=== PATIENT | male | born 1950 | race Caucasian/White ===

== ENCOUNTER 2018-07-28 20:27 | Inpatient (IN) | payer MEDICARE, OTHER ==
[2018-07-28 21:16] LABS: #Basophils 0.1 thou/uL (0.0-0.2); #Eosinphils 0.1 thou/uL (0.0-0.7); #Lymphocytes 2.2 thou/uL (1.20-3.40); #Monocytes 0.8 thou/uL (0.11-0.59); #Neutrophils 6.6 thou/uL (1.40-6.50); %Basophils 0.6 % (0.0-1.0); %Eosinophils 1.4 % (0.0-10.0); %Lymphocytes 22.1 % (21.0-51.0); %Monocytes 8.4 % (0.0-10.0); %Neutrophils 67.5 % (42.0-75.0); Hemoglobin 15.9 g/dL (14.0-18.0); Mean Corpuscular Hemoglobin 29.5 pg (27.0-31.0); Mean Corpuscular Volume 86.9 fL (78.0-98.0); Mean Platelet Volume 8.6 fL (7.4-10.4); Platelet Count 274 thou/uL (130-400); RBC Distribution Width 13.1 % (11.5-14.5); Red Blood Cell (RBC) Count 5.37 mill/uL (4.70-6.10); White Blood Cell (WBC) Count 9.7 thou/uL (4.8-10.8)
--- NOTE | 2018-07-28 21:19 | RAD ---
SINGLE VIEW CHEST: HISTORY: Shortness of breath for two days. COMPARISON: 08/06/2007 FINDINGS: A single view of the chest shows an enlarged but stable cardiomediastinal silhouette. Opacities are seen in the lung bases, which may represent atelectasis or infiltrates. Small pleural effusions may also be present. Degenerative changes are seen in the spine. IMPRESSION: 1. Bilateral lower lobe atelectasis versus infiltrates. 2. Possible small bilateral pleural effusions. POS: ROSEANNEH
[2018-07-28 21:23] LABS: INR-International Normal Ratio 1.9; PTT 32.8 SEC (22.9-36.1); Prothrombin Time 21.9 SEC (12.0-14.7)
[2018-07-28 21:38] LABS: ALT (SGPT) 14 U/L (8-55); AST (SGOT) 15 U/L (5-34); Albumin 4.2 g/dL (3.4-4.8); Alkaline Phosphatase 97 U/L (40-150); Anion Gap 16 mmol/L (10-20); BUN (Urea Nitrogen) 17 mg/dL (8.4-25.7); Bilirubin, Total 1.2 mg/dL (0.2-1.2); CK (CPK) 110 U/L (30-200); Calc. Creatinine Clearance 0 mL/min (70-130); Calcium 9.5 mg/dL (7.8-10.44); Carbon Dioxide 23 mmol/L (23-31); Chloride 105 mmol/L (98-107); Estimated GFR-MDRD 44; Globulin 3.2 g/dL (2.4-3.5); Glucose 93 mg/dL (80-115); Potassium 3.3 mmol/L (3.5-5.1); Protein, Total 7.4 g/dL (5.8-8.1); Sodium 141 mmol/L (136-145)
[2018-07-28 21:46] LABS: CKMB 2.1 ng/mL (0-6.6)
[2018-07-28] MEDS ORDERED: Furosemide 40 MG/4 ML VIAL ONE (22:37)
[2018-07-28] MEDS ORDERED: Enoxaparin Sodium 100 MG/ML SYRINGE ONE (22:39)
[2018-07-28] MEDS ORDERED: Enoxaparin Sodium 30 MG/0.3 ML SYRINGE ONE ×2 (22:39→22:40)
[2018-07-28] MEDS ORDERED: Senokot S 8.6-50 MG TAB PO PRN (23:07)
[2018-07-28] MEDS ORDERED: Zolpidem Tartrate 5 MG TAB PO PRN (23:07)
[2018-07-28] MEDS ORDERED: Acetaminophen 325 MG TAB PO PRN (23:07)
[2018-07-28] MEDS ORDERED: Acetaminophen 650 MG Suppository PR PRN (23:07)
[2018-07-28] MEDS ORDERED: Bisacodyl 5 MG TAB PO PRN (23:07)
[2018-07-28] MEDS ORDERED: Ondansetron ODT 4 MG TAB PO PRN (23:07)
[2018-07-28] MEDS ORDERED: Ondansetron PF 4 MG/2 ML Vial IVP PRN (23:07)
[2018-07-28] MEDS ORDERED: Guaifenesin DM 100-10/5 ML UDCUP PO PRN (23:07)
[2018-07-29 01:11] LABS: Troponin I 0.036 ng/mL (< 0.028)
[2018-07-29] MEDS ORDERED: Calcitriol 0.25 MCG CAP PO SCH (05:15)
[2018-07-29 05:16] LABS: Albumin 3.3 g/dL (3.4-4.8); Anion Gap 14 mmol/L (10-20); BUN (Urea Nitrogen) 16 mg/dL (8.4-25.7); BUN/Creatinine Ratio 11.43; Calc. Creatinine Clearance 80 mL/min (70-130); Calcium 8.8 mg/dL (7.8-10.44); Carbon Dioxide 19 mmol/L (23-31); Chloride 111 mmol/L (98-107); Estimated GFR-MDRD 50; Glucose 108 mg/dL (80-115); Potassium 3.4 mmol/L (3.5-5.1); Sodium 141 mmol/L (136-145)
--- NOTE | 2018-07-29 06:14 | HP ---
CHIEF COMPLAINT: Shortness of breath. HISTORY OF PRESENT ILLNESS: This is a 68-year-old male who has past medical history of CHF, hypertension, and atrial fibrillation, presenting with shortness of breath for the past 2 days. Per the patient, he states that he has been having severe shortness of breath with lying flat, walking distances compared to his baseline. The patient also states that he has to sit straight for relief. The patient is also complaining of bilateral lower extremity swelling. Per the , the patient is also complaining of some abdominal bloating. The patient states that when he eats a little bit of food, he gets a lot of gas in his abdomen and he feels like he wants to burp or try and release some gas, but sometimes, it is very difficult for him. The patient states that he recently went to the ED due to this abdominal bloating and he was given Maalox and that helped. At this point, the patient states that he takes Lasix, which also helps with his shortness of breath. The patient endorses orthopnea, dyspnea on exertion, paroxysmal nocturnal dyspnea. Denies any chest pain, palpitations, fever, chills, dizziness, headaches, dysuria, hematuria, melena, hematochezia, constipation, or diarrhea. REVIEW OF SYSTEMS: Positive for dyspnea, orthopnea, paroxysmal nocturnal dyspnea, otherwise as documented in the HPI. All other systems were reviewed and are negative. PAST MEDICAL HISTORY: CHF, AFib, hypertension. FAMILY HISTORY: Reviewed and noncontributory to this visit. PAST SURGICAL HISTORY: Left knee surgery. PSYCH HISTORY: No psych history. SOCIAL HISTORY: The patient is a former tobacco user. The patient stopped smoking in 2014. The patient denies any illicit drugs. The patient denies any alcohol use. ALLERGIES: NO KNOWN DRUG ALLERGIES. CURRENT MEDICATIONS: The patient takes: 1. Lasix 40. 2. Warfarin 5 mg. 3. Diltiazem 240 mg. 4. Digoxin 125 mcg. 5. Potassium chloride 10 mEq. 6. Atorvastatin 40 mg. PHYSICAL EXAMINATION: VITAL SIGNS: The patient's blood pressure is 129/92, pulse of 89, respiratory rate of 18, temperature of 98.1, O2 saturation of 97% on room air. GENERAL: The patient is lying on his left side, does not appear to be in any acute distress at this time. The patient is able to speak to me in full sentences. The patient appears his stated age. HEENT: Normocephalic, atraumatic. Pupils are equally round and reactive to light. Extraocular movements are intact. No scleral icterus. Mucous membranes moist. NECK: The patient does have some JVD as noted. Trachea is midline. Full range of motion. Supple. LUNGS: The patient has some rales bilaterally at the lung bases. CARDIAC: Positive S1 and S2. Irregularly irregular. ABDOMEN: Obese abdomen. Soft, nontender, and nondistended. Positive bowel sounds in all quadrants. No peritoneal signs. EXTREMITIES: The patient has 5/5 upper extremity strength and 5/5 lower extremity strength. The patient does have bilateral 1+ pitting edema as noted at the lower extremities. The patient has good pulses of the lower extremities and upper extremities. NEURO: Cranial nerves 2 through 12 are grossly intact. No neurologic deficits noted. SKIN: Warm, dry, and intact. No skin lesions noted. LABORATORY DATA: WBC 9.7, hemoglobin 15.9, hematocrit 46.6, platelet count is 274. PT is 21.9, INR is 1.9, PTT 32.8. Sodium is 141, potassium is 3.3, chloride is 105, carbon dioxide of 23, anion gap of 16, BUN is 17, creatinine is 1.57, GFR is 44, AST is 15, ALT is 14. Creatine kinase is 110. Troponin is 0.04, repeat is 0.03. BNP is 244. Chest x-ray shows some bilateral infiltrates and small pleural effusion noted. ASSESSMENT AND PLAN: This is a 68-year-old male with multiple comorbidities being admitted for: 1. Shortness of breath, likely secondary to acute congestive heart failure exacerbation. At this point, the patient has been given Lasix. We will hold off Lasix at this time since the patient's creatinine is currently 1.57. We will get Nephrology to help with the patient's acute kidney injury in addition to having acute heart failure. We have also consulted Pulmonology on the case. We will follow up with their recommendations. 2. Acute kidney injury, likely due to Lasix use. At this point, the patient's creatinine is 1.57 and the patient has chronic kidney disease stage 3. We have consulted Nephrology to help us with the management of the patient's acute heart failure in the setting of acute kidney injury. We will continue with their recommendations and will follow up on renal panel. 3. Atrial fibrillation: The patient is on warfarin. We will continue the patient on warfarin, and I will continue the patient on digoxin and diltiazem, which the patient takes at home. I will continue to monitor the patient. 4. Hypertension, uncontrolled at this time. We will continue the patient on his home medications and we will monitor the patient's blood pressure closely, and we will address the patient's hypertension accordingly without p.r.n. blood pressure medications. 5. Hypokalemia: We will replete the patient's electrolyte abnormalities. 6. Bilateral pleural effusions: The patient has received Lasix. We will continue to manage the patient accordingly. 7. Deep venous thrombosis and gastrointestinal prophylaxis. Job ID: [id number]
[2018-07-29 07:36] LABS: #Basophils 0.1 thou/uL (0.0-0.2); #Eosinphils 0.2 thou/uL (0.0-0.7); #Lymphocytes 2.1 thou/uL (1.20-3.40); #Monocytes 0.9 thou/uL (0.11-0.59); #Neutrophils 5.1 thou/uL (1.40-6.50); %Basophils 1.1 % (0.0-1.0); %Eosinophils 2.1 % (0.0-10.0); %Monocytes 10.8 % (0.0-10.0); Hemoglobin 14.5 g/dL (14.0-18.0); Mean Corpuscular HGB CONC 33.4 g/dL (32.0-36.0); Mean Corpuscular Hemoglobin 29.2 pg (27.0-31.0); Mean Corpuscular Volume 87.6 fL (78.0-98.0); Mean Platelet Volume 8.7 fL (7.4-10.4); Platelet Count 210 thou/uL (130-400); Red Blood Cell (RBC) Count 4.96 mill/uL (4.70-6.10); White Blood Cell (WBC) Count 8.4 thou/uL (4.8-10.8)
[2018-07-29] MEDS: Potassium Chloride 10 MEQ TAB PO SCH (08:59)
[2018-07-29] MEDS: Calcitriol 0.25 MCG CAP PO SCH (08:59)
[2018-07-29] MEDS: Digoxin 0.125 MG TAB PO SCH (08:59)
[2018-07-29] MEDS: Atorvastatin Calcium 40 MG TAB PO SCH (08:59)
[2018-07-29] MEDS ORDERED: Heparin 5,000 UNITS/ML VIAL SC SCH (09:00)
[2018-07-29] MEDS ORDERED: Furosemide 40 MG/4 ML VIAL SLOW IVP SCH ×2 (10:10→10:30)
[2018-07-29] MEDS ORDERED: Potassium Chloride 20 MEQ TAB PO SCH (10:15)
[2018-07-29] MEDS: Mag-Al Plus 1200 MG/1200 MG/120 MG/30 ML UDCUP PO SCH ×2 (10:40→21:23)
[2018-07-29 11:08] LABS: Digoxin 0.64 ng/mL (0.8-2.0)
--- NOTE | 2018-07-29 13:43 | CON ---
DATE OF CONSULTATION: 07/29/2018 TYPE OF CONSULTATION: Cardiology. REASON FOR CONSULTATION: Atrial fibrillation and congestive heart failure. HISTORY OF PRESENT ILLNESS: Mr. Tom You is a 68-year-old gentleman, admitted with congestive heart failure. Mr. You states he first began having problems 3 years ago, he was diagnosed with atrial fibrillation at that time. He states that about 2 years ago, he underwent cardioversion, but went back into fibrillation relatively quickly. The patient has had some difficulty breathing off and on since then. To his knowledge, he has never had a heart catheterization. To his knowledge, he has never had stress testing. He was scheduled to see Dr. Ambriz, but has not yet done so. He is cared for primarily by regional operations director in [place]. He saw his regional operations director a month ago in [place] and things were fine according to the patient at that point. The patient has had progressive shortness of breath. He went to the emergency room a few days ago. He was seen and released, but his difficulty breathing progressed in the last few days. He became increasingly short of breath and was admitted here yesterday. He is unable to lie flat. He has had increasing swelling of his lower extremities. He has a feeling of bloating in his stomach and it is difficult to eat because he feels very full with minimal eating. REVIEW OF SYSTEMS: CONSTITUTIONAL: Positive for some difficulty breathing. VISION: No changes. HEARING: No changes. PULMONARY: Positive for shortness of breath and orthopnea and nocturnal dyspnea. CARDIAC: As outlined above as well. GASTROINTESTINAL: As outlined above. SKIN: No rashes. NEUROLOGIC: No unilateral weakness or numbness. PSYCHIATRIC: No unusual depression or anxiety. HEMATOLOGIC: No unusual bruising. GENITOURINARY: No burning with urination. MUSCULOSKELETAL: No unusual joint pains. PAST MEDICAL HISTORY: 1. Congestive heart failure. 2. Atrial fibrillation. 3. Hypertension. FAMILY HISTORY: Noncontributory. Negative for heart disease at a young age. SOCIAL HISTORY: No alcohol or tobacco. He quit in 2014. Psychiatric, no psychiatric history. ALLERGIES: NONE KNOWN. MEDICATIONS: Prior to admission; 1. Lasix 40 mg. 2. Coumadin 5 mg a day. 3. Diltiazem 240 mg a day. 4. Digoxin 0.125 mg a day. 5. Potassium 10 mEq a day. 6. Atorvastatin 40 mg a day. PAST SURGICAL HISTORY: Negative for any cardiac surgeries or procedures. PHYSICAL EXAMINATION: GENERAL: This is a pleasant 68-year-old gentleman. VITAL SIGNS: His blood pressure earlier 174/78. Pulse recorded at 98, now it is 130. Most recent blood pressure 123/87. HEENT: Eyes, sclerae nonicteric. Mouth, mucous membranes moist. NECK: Supple. No lymphadenopathy. LUNGS: Clear. No wheezing, rales, or rhonchi. CARDIAC: Irregularly irregular. He is tachycardic. There is a 3/6 holosystolic murmur, sounds like mitral regurgitation, heard loudest at the apex. ABDOMEN: Somewhat distended. Nontender. EXTREMITIES: No clubbing, cyanosis. There is [id number] edema. Pulses, he has good popliteal pulses. It is difficult to feel pedal pulses due to the edema. PERTINENT LABORATORY: The creatinine is 1.4 and estimated GFR is 50. Troponins are indeterminant 0.040 and BNP 244.5. Chest x-ray shows cardiomegaly with pulmonary congestion to my interpretation. ASSESSMENT: 1. Congestive heart failure, probably systolic and diastolic mixed, acute on chronic decompensated, unable to lie flat. 2. Suspect mitral regurgitation. 3. Atrial fibrillation, chronic, rate uncontrolled. 4. Renal failure, stage 3. PLAN: 1. He is on diltiazem. 2. He is on digoxin. We will check a level. 3. Intravenous diuretics. 4. Echocardiogram pending. 5. Hypokalemia. We will replete potassium. 6. The patient in my opinion should be admitted and he will be here a few days, it is ultimately stress testing versus cardiac catheterization. At this point, the patient is not yet compensated to undergo stress testing, but should be considered. 7. Also, he is still on Coumadin for the atrial fibrillation and stroke prevention. We will follow with you during this hospitalization. Job ID: [id number]
[2018-07-29] MEDS: Furosemide 40 MG/4 ML VIAL SLOW IVP SCH (15:38)
[2018-07-29 17:00] VITALS: BMI 31.2
[2018-07-29] MEDS: Warfarin Sodium 5 MG TAB PO SCH (18:07)
[2018-07-29] MEDS ORDERED: Warfarin Sodium 5 MG TAB PO SCH (21:00)
[2018-07-30 05:37] LABS: INR-International Normal Ratio 1.5; Prothrombin Time 17.9 SEC (12.0-14.7)
[2018-07-30 06:06] LABS: Anion Gap 17 mmol/L (10-20); BUN (Urea Nitrogen) 17 mg/dL (8.4-25.7); Calc. Creatinine Clearance 81 mL/min (70-130); Calcium 9.1 mg/dL (7.8-10.44); Carbon Dioxide 21 mmol/L (23-31); Chloride 108 mmol/L (98-107); Estimated GFR-MDRD 51; Glucose 97 mg/dL (80-115); Magnesium 2.6 mg/dL (1.6-2.6); Phosphorus 3.3 mg/dL (2.3-4.7); Potassium 3.5 mmol/L (3.5-5.1); Sodium 142 mmol/L (136-145)
[2018-07-30] MEDS: Furosemide 40 MG/4 ML VIAL SLOW IVP SCH ×2 (06:54→14:27)
[2018-07-30] MEDS: Digoxin 0.125 MG TAB PO SCH (09:32)
[2018-07-30] MEDS: Atorvastatin Calcium 40 MG TAB PO SCH (09:32)
[2018-07-30] MEDS: Potassium Chloride 10 MEQ TAB PO SCH (09:32)
[2018-07-30] MEDS: Mag-Al Plus 1200 MG/1200 MG/120 MG/30 ML UDCUP PO SCH ×2 (09:33→21:03)
[2018-07-30] MEDS: Warfarin Sodium 5 MG TAB PO SCH (16:32)
--- NOTE | 2018-07-30 16:45 | PDOC.PN ---
- Subjective Encounter Start Date: 07/30/18 Encounter Start Time: 16:43 Subjective: Improved relative to admission, not yet to baseline "but getting there" -: Prefers to do stress test as outpatient if possible with Dr. Shaikh's offic - Objective Resuscitation Status - Order Detail: 07/28/18 23:07 Resuscitation Status Routine Resuscitation Status: FULL: Full Resuscitation Vital Signs & Weight: Vital Signs (12 hours) Temp Pulse Pulse Pulse Resp BP BP 07/30/18 11:44 97.8 F 62 16 07/30/18 11:28 102 H 111 H 129/93 H 127/78 07/30/18 09:32 76 07/30/18 09:15 07/30/18 07:52 97.7 F 76 18 BP BP Pulse Ox Pulse Ox Pulse Ox 07/30/18 11:44 124/93 H 96 07/30/18 11:28 97 96 07/30/18 09:32 07/30/18 09:15 96 07/30/18 07:52 163/106 H 96 Weight Admit Weight 249 lb 14.4 oz Weight 250 lb 3.2 oz I&O: 07/29/18 07/30/18 07/31/18 06:59 06:59 06:59 Intake Total 0 798 Output Total 400 1425 Balance -400 -627 Result Diagrams: 07/29/18 07:21 07/30/18 04:52 Phys Exam - Physical Examination Constitutional: NAD HEENT: PERRLA, moist MMs Neck: supple, full ROM Respiratory: clear to auscultation bilateral irregularly irregular Gastrointestinal: soft, non-tender Trace edema Neurological: non-focal, moves all 4 limbs Psychiatric: normal affect, A&O x 3 Skin: no rash Dx/Plan (1) Mitral valve regurgitation Status: Chronic (2) Atrial fibrillation, chronic Code(s): I48.2 - CHRONIC ATRIAL FIBRILLATION Status: Chronic (3) Hypertension Code(s): I10 - ESSENTIAL (PRIMARY) HYPERTENSION Status: Chronic Qualifiers: Hypertension type: essential hypertension Qualified Code(s): I10 - Essential (primary) hypertension (4) Dyslipidemia Code(s): E78.5 - HYPERLIPIDEMIA, UNSPECIFIED Status: Chronic - Plan cont current plan of care, out of bed/ambulate * Assessment: * 1. CHF, secondary to valvular heart disease (diastolic) - Echo with moderate to severe MR. LA moderately to severely dilated. EF 55-60%. Patient would prefer outpatient stress test/cath if recommended by Dr. Shaikh. He would like to establish in [facility] cardiology care, has been traveling to [facility] to see Dr. Carranza. * 2. Atrial fibrillation - Continue coumadin, subtherapeutic. Optimize rate control, on CCB and digoxin at home * 3. CKD stage 3-check AM lab. Appears euvolemic presently, lasix on hold * 4. HTN - start low dose lisinopril * 5. Hypokalemia - additional dose tonight * * Home tomorrow a consideration if ok with cardiology * .
[2018-07-30] MEDS ORDERED: Warfarin Sodium 7.5 MG TAB PO SCH (17:00)
[2018-07-30] MEDS ORDERED: Potassium Chloride 20 MEQ TAB PO SCH (17:00)
[2018-07-30] MEDS ORDERED: Warfarin Sodium 2.5 MG TAB PO SCH (17:15)
--- NOTE | 2018-07-30 19:16 | PRG ---
DATE OF SERVICE: 07/30/2018 SUBJECTIVE: The patient is doing well, feeling much better. His breathing has improved. OBJECTIVE: VITAL SIGNS: His blood pressure is 124/93 and pulse is in the 70 to 80, it is irregular. LUNGS: Clear. CARDIAC: Irregularly irregular with aortic murmur. ABDOMEN: Soft and nontender. LABORATORY DATA: Revealed ejection fraction is normal. He has moderate aortic stenosis. INR is 1.5. ASSESSMENT: 1. Aortic stenosis. 2. Mitral regurgitation. 3. Chronic atrial fibrillation. 4. Diastolic heart failure, improved. PLAN: Plan for stress testing tomorrow. The patient wished to be released home as soon as possible. Job ID: [id number]
[2018-07-30] MEDS: Lisinopril 5 MG TAB PO SCH (21:03)
[2018-07-31 06:34] LABS: Hemoglobin 14.7 g/dL (14.0-18.0); Platelet Count 206 thou/uL (130-400)
[2018-07-31 06:41] LABS: INR-International Normal Ratio 1.6; Prothrombin Time 18.8 SEC (12.0-14.7)
[2018-07-31 06:58] LABS: Anion Gap 14 mmol/L (10-20); BUN (Urea Nitrogen) 18 mg/dL (8.4-25.7); Calc. Creatinine Clearance 79 mL/min (70-130); Calcium 9.1 mg/dL (7.8-10.44); Carbon Dioxide 24 mmol/L (23-31); Chloride 107 mmol/L (98-107); Estimated GFR-MDRD 49; Glucose 86 mg/dL (80-115); Magnesium 2.1 mg/dL (1.6-2.6); Phosphorus 3.4 mg/dL (2.3-4.7); Potassium 3.8 mmol/L (3.5-5.1); Sodium 141 mmol/L (136-145)
[2018-07-31] MEDS: Furosemide 40 MG/4 ML VIAL SLOW IVP SCH ×3 (06:59→17:00)
[2018-07-31] MEDS: Calcitriol 0.25 MCG CAP PO SCH (10:01)
[2018-07-31] MEDS: Lisinopril 5 MG TAB PO SCH (10:01)
[2018-07-31] MEDS: Digoxin 0.125 MG TAB PO SCH (10:01)
[2018-07-31] MEDS: Potassium Chloride 10 MEQ TAB PO SCH (10:01)
[2018-07-31] MEDS: Atorvastatin Calcium 40 MG TAB PO SCH (10:02)
[2018-07-31] MEDS: Mag-Al Plus 1200 MG/1200 MG/120 MG/30 ML UDCUP PO SCH (10:02)
[2018-07-31 12:33] VITALS: TEMP 97.8
--- NOTE | 2018-07-31 13:19 | NM ---
NUCLEAR MEDICINE CARDIAC SPECT WITH EF AND WALL MOTION: History: 68-year-old male with history of congestive heart failure, atrial fibrillation, and hypertension. Adenosine Sestamibi study was performed. FINDINGS: Patient was injected with 32 mCi Technetium 99M Sestamibi intravenously for stress images and 11 mCi Technetium 99M Sestamibi intravenously for resting images. Multiple SPECT images in the short axis, vertical long axis, and horizontal long axis demonstrates no scan evidence for infarct or ischemia. TID: 1.00 LHR: 0.31 EDV: Elevated at 200 ml Ejection Fraction: 45% MYOCARDIAL PERFUSION WALL MOTION: Mild diffuse hypokinesis. IMPRESSION: EDV at 200 ml with 45% ejection fraction and mild diffuse hypokinesis. POS: PÉREZ
--- NOTE | 2018-07-31 16:10 | PRG ---
DATE OF SERVICE: 07/31/2018 SUBJECTIVE: Mr. You is feeling fine, he is breathing much better. No chest pain. OBJECTIVE: VITAL SIGNS: Blood pressure 112/94, pulse 80, it is irregular. LUNGS: Clear. CARDIAC: Irregularly irregular. There is apical systolic murmur of mitral regurgitation. ABDOMEN: Soft and nontender. EXTREMITIES: Moderate edema, right more than the left. He has been sitting in the chair instead of lying in the bed to try to elevate his feet. Nuclear medicine stress testing showed no ischemia. The ejection fraction was reported as 45%, but the ejection fractions are difficult to evaluate and the patient is in atrial fibrillation and somewhat unreliable. Echocardiogram revealed ejection fraction of 55% with moderate aortic stenosis and moderate to severe mitral regurgitation. ASSESSMENT: 1. Congestive heart failure, systolic, diastolic. 2. Aortic stenosis thought to be moderate. 3. Mitral regurgitation, moderate to severe. 4. Renal failure, stage 3. Creatinine 1.42. PLAN: 1. Plan is to go home on torsemide 20 mg twice a day. 2. He is on Coumadin. He said he had severe bleeding on Xarelto. 3. Lisinopril 5 mg twice a day. 4. He is on diltiazem 240 mg a day to help control his heart rate. 5. Digoxin 0.125 mg a day. 6. The patient's heart rate has been variable during this admission and at some point in the future, we may consider reducing the diltiazem dose in view of the congestive heart failure, may need further evaluation in the future of his valves but at this point, does not appear to need surgical attention. Job ID: [id number]
[2018-07-31] MEDS ORDERED: Warfarin Sodium 7.5 MG TAB PO SCH (17:00)
[2018-07-31 20:31] VITALS: BP 118/82
[2018-08-01] MEDS ORDERED: Torsemide 20 MG TAB PO SCH (09:00)
[2018-08-01] MEDS ORDERED: Potassium Chloride 10 MEQ TAB PO SCH (09:00)
[2018-08-01] MEDS ORDERED: Potassium Chloride 20 MEQ TAB PO SCH (09:00)
--- NOTE | 2018-08-01 14:58 | STRESS ---
Acquisition Time: 2018-07-31 08:25:19 Total Exercise Time: 00:04:00 Test Indications: CHF Medications: Protocol: ADENOSINE Max HR: 116 BPM 76% of Pred: 151 BPM Max BP: 120/086 mmHG Max Work Load: 1.0 METS RESTING ECG: ATRIAL FIBRILLATION AT 96BPM WITH INCOMLPETE LBBB AND FREQUENT PVC'S. SYMPTOMS: NONE NORMAL BP RESPONSE ECTOPY: FREQUENT PVC'S ECG STRESS: NO SIGNIFICANT CHANGES INTERPRETATION: INDETERMINATE ECG/AWAIT NUCLEAR IMAGES FOR DEFINITIVE DIAGNOSIS Confirmed by RODOLFO CRAIG ELLEN ([id number]) on 08/01/2018 2:57:39 PM Referred By: MD Angella STEARNS Confirmed By:ZARA CRAIG PA-C
--- NOTE | 2018-08-02 01:36 | DIS ---
DATE OF ADMISSION: 07/29/2018 DATE OF DISCHARGE: 07/31/2018 CHIEF COMPLAINT/REASON FOR ADMISSION: Shortness of breath. PRINCIPAL DIAGNOSIS ON ADMISSION: Congestive heart failure, with acute exacerbation. CONSULTS DURING HOSPITAL STAY: Cardiology, Lyle Shaikh MD DISCHARGE DIAGNOSES: 1. Congestive heart failure, diastolic type, secondary to valvular heart disease, in the context of mitral valve regurgitation (chronic). 2. Chronic atrial fibrillation. 3. Essential hypertension. 4. Dyslipidemia. HOSPITAL COURSE: Mr. You is a delightful 68-year-old gentleman, presenting with worsening shortness of breath and volume overload. He was admitted to the hospital, underwent diuresis and afterload reduction, with interval improvement in symptoms. 2D echocardiogram noted moderate to severe mitral regurgitation, left atrium moderately to severely dilated, ejection fraction 55% to 60%. He also underwent a nuclear medicine stress test on 07/31/2018, with studies showing mild diffuse hypokinesis, as well as an ejection fraction of 45%. At the time of discharge, recommended oral diuretic as Demadex instead of his home Lasix. I have sent a new prescription to his pharmacy. In addition, mild afterload reduction added with lisinopril 5 mg p.o. daily. At the time of my evaluation on 07/31/2018, the patient is significantly improved relative to admission. He is feeling better, off oxygen, ambulating in the halls, and significant improvement in his edema and dyspnea. He will follow up with Dr. Shaikh in the office in 2 to 4 weeks, and will maintain routine cardiac care with Dr. Shaikh. DISCHARGE MEDICATIONS: Medications at the time of discharge are as follows; 1. Lisinopril 5 mg p.o. daily, new prescription. 2. Demadex 20 mg p.o. b.i.d., new prescription (please note, home oral Lasix was discontinued). 3. Atorvastatin 40 mg p.o. at bedtime. 4. Calcitriol 0.25 mcg p.o. once daily. 5. Digoxin 0.125 mg p.o. once daily. 6. Diltiazem 240 mg p.o. daily. 7. Magnesium hydroxide/aluminum/simethicone (Rulox suspension 10 mL p.o. b.i.d. p.r.n. indigestion). 8. Potassium chloride 10 mEq p.o. daily. 9. Coumadin 5 mg p.o. nightly, the patient will follow up locally with the lab in 2 weeks. He has been on Coumadin for an extensive period of time. DIET: Low salt/heart healthy. ACTIVITY: As tolerated. FOLLOWUP: Follow up with Dr. Shaikh in our office as directed, estimate in 2 to 4 weeks. He will maintain a log of home weight/blood pressure as well. CONDITION ON DISCHARGE: Improved. TIME SPENT: Total time spent on discharge is 40 minutes. Job ID: [id number]
== END 2018-07-31 19:30 | disposition home or self-care (01) | DRG 291 ==
LOC: ERS 20:27 → 2SW 22:54 → OBSVTOIN 07-29 10:33 → 2NO 07-29 20:19
PROVIDERS: ADMIT Internal Medicine; ATTEND Internal Medicine
DX: I13.0 Hypertensive heart and chronic kidney disease with heart failure and stage 1 through stage 4 chronic kidney disease, or unspecified chronic kidney disease (principal); I50.43 Acute on chronic combined systolic (congestive) and diastolic (congestive) heart failure; N17.9 Acute kidney failure, unspecified; N18.3 Chronic kidney disease, stage 3 (moderate); E87.6 Hypokalemia; I48.91 Unspecified atrial fibrillation; Z79.899 Other long term (current) drug therapy; Z87.891 Personal history of nicotine dependence; Z79.01 Long term (current) use of anticoagulants; I35.0 Nonrheumatic aortic (valve) stenosis; I34.0 Nonrheumatic mitral (valve) insufficiency
CPT/HCPCS: 36415; 71045; 78452; 80048; 80053; 80069; 80162; 82550; 82553; 83735; 83880; 84100; 84484; 85014; 85018; 85025; 85049; 85610; 85730; 93005; 93017; 93306; 93798; 96372; 96374; A9500; J1650; J1940

== ENCOUNTER 2018-12-11 10:40 | Inpatient (IN) | payer MEDICARE ==
[2018-12-11] MEDS ORDERED: Furosemide 20 MG/2 ML VIAL ONE (11:19)
[2018-12-11] MEDS ORDERED: Aspirin Chewable 81 MG TAB ONE (11:19)
--- NOTE | 2018-12-11 11:39 | RAD ---
Chest AP view INDICATION: Bilateral lower extremity edema with heart palpitations COMPARISON: July 28, 2018 FINDINGS: Lungs:There is left basilar opacity Cardiac silhouette pulmonary vasculature:There is moderate cardiomegaly with pulmonary vascular conge stion and perihilar edema Pleural spaces:There is a small left and tiny right pleural effusion Upper abdomen:No abnormality seen. Osseous structures: No acute osseous abnormality. Additional findings:None. IMPRESSION: Findings of CHF. Continued follow-up is recommended. Left basilar opacity may reflect sub segmental atelectasis; however, pneumonia isn't excluded.
[2018-12-11 11:57] LABS: #Basophils 0.1 thou/uL (0.0-0.2); #Eosinphils 0.1 thou/uL (0.0-0.7); #Lymphocytes 1.7 thou/uL (1.20-3.40); #Monocytes 0.8 thou/uL (0.11-0.59); #Neutrophils 9.3 thou/uL (1.40-6.50); %Eosinophils 0.7 % (0.0-10.0); %Lymphocytes 13.8 % (21.0-51.0); %Monocytes 6.6 % (0.0-10.0); Hemoglobin 15.9 g/dL (14.0-18.0); Mean Corpuscular HGB CONC 33.1 g/dL (32.0-36.0); Mean Corpuscular Hemoglobin 29.5 pg (27.0-31.0); Mean Corpuscular Volume 89.3 fL (78.0-98.0); Mean Platelet Volume 8.3 fL (7.4-10.4); Platelet Count 191 thou/uL (130-400); RBC Distribution Width 15.7 % (11.5-14.5); Red Blood Cell (RBC) Count 5.38 mill/uL (4.70-6.10)
[2018-12-11 12:13] LABS: ALT (SGPT) 15 U/L (8-55); AST (SGOT) 14 U/L (5-34); Albumin 4.2 g/dL (3.4-4.8); Alkaline Phosphatase 84 U/L (40-150); Anion Gap 17 mmol/L (10-20); BUN (Urea Nitrogen) 21 mg/dL (8.4-25.7); Bilirubin, Total 1.9 mg/dL (0.2-1.2); Calc. Creatinine Clearance 0 mL/min (70-130); Calcium 9.9 mg/dL (7.8-10.44); Carbon Dioxide 24 mmol/L (23-31); Chloride 106 mmol/L (98-107); Estimated GFR-MDRD 41; Globulin 2.8 g/dL (2.4-3.5); Glucose 93 mg/dL (80-115); Lipase 28 U/L (8-78); Potassium 3.4 mmol/L (3.5-5.1); Sodium 144 mmol/L (136-145)
[2018-12-11 12:30] LABS: CKMB 2.3 ng/mL (0-6.6)
[2018-12-11] MEDS ORDERED: Acetaminophen 325 MG TAB PO PRN (16:10)
[2018-12-11] MEDS ORDERED: Bisacodyl 5 MG TAB PO PRN (16:10)
[2018-12-11] MEDS ORDERED: Pharmacy to MANAGE WARFARIN PO PRN (16:12)
[2018-12-11] MEDS ORDERED: Potassium Chloride 20 MEQ TAB PO SCH (16:30)
--- NOTE | 2018-12-11 17:03 | HP ---
PRIMARY CARE PROVIDER: Effie Lion NP. CHIEF COMPLAINT: Lower extremity swelling. HISTORY OF PRESENT ILLNESS: Mr. You is a pleasant 68-year-old gentleman, who was seen at [facility] on December 11, 1018. He said he has a history of congestive heart failure and atrial fibrillation. Over the last 3 weeks, he has had difficulty breathing while lying down. He had increase in his torsemide dose without significant relief. Over the last 1 week, his lower extremities have been swelling up. There was also reportedly some fluid seepage from his right castellanos. He presented to the emergency room because of bilateral lower extremity edema. He also reports having on and off palpitations. He denies any chest pain. He denies any vomiting. REVIEW OF SYSTEMS: All other systems reviewed and found to be negative. PAST MEDICAL HISTORY: Congestive heart failure, hypertension, atrial fibrillation. PAST SURGICAL HISTORY: Left knee surgery to repair ligaments. SOCIAL HISTORY: The patient denies tobacco use, alcohol use, or recreational drug use. FAMILY HISTORY: No family history of premature coronary artery disease. ALLERGIES: NO KNOWN DRUG ALLERGIES. CURRENT MEDICATIONS: 1. Cozaar 25 mg 2 times a day. 2. Calcitriol 0.25 mcg every other day. 3. Torsemide 60 mg daily. 4. Digoxin 125 mcg daily. 5. Atorvastatin 40 mg daily. 6. Potassium chloride 10 mEq daily. 7. Diltiazem 240 mg daily. 8. Warfarin 5 mg daily. PHYSICAL EXAMINATION: GENERAL: On examination, Mr. You is awake and alert, not in acute distress. VITAL SIGNS: Blood pressure is 115/68, pulse 92, respiratory rate 20, and oxygen saturation 95% on room air. He is afebrile. He is obese with a BMI of 30. EYES: No scleral icterus. No conjunctival pallor. ENT: Moist mucosal membranes. No oropharyngeal erythema or exudates. NECK: Supple, nontender, trachea is midline. He has jugular venous distention. RESPIRATORY: Accessory muscles of breathing are not active. Chest wall movements are symmetric bilaterally. Lung examination reveals bibasilar crackles. CARDIOVASCULAR: S1 and S2 are heard, regular. Peripheral pulses palpable. No carotid bruit. No pericardial rub. ABDOMEN: Soft, nontender, bowel sounds heard. NEUROLOGIC: Cranial nerves 2 through 12 intact, deep tendon reflexes 2+. MUSCULOSKELETAL: Power is 5/5 in all 4 extremities. SKIN: Bilateral lower extremity edema present, no rashes. LYMPHATIC: No cervical lymphadenopathy. PSYCHIATRIC: Normal mood, normal affect, the patient is oriented to person, place, and time. LABORATORY DATA: Mr. You's labs and investigations were reviewed. I reviewed his electrocardiogram, which shows atrial fibrillation with controlled ventricular response, no ST changes to suggest an acute coronary syndrome. I also reviewed his chest x-ray, which shows pulmonary vascular congestion. He has leukocytosis with 12,000 white cells, of which 78% are neutrophils, normal hemoglobin, normal platelet count, normal sodium, decreased potassium of 3.4, normal blood urea nitrogen, elevated creatinine of 1.66, elevated total bilirubin of 1.9, indeterminate troponin I of 0.30, which subsequently normalized to 0.020 and elevated BNP of 742.3. AST, ALT, and alkaline phosphatase are normal. Lipase is normal. ASSESSMENT AND PLAN: Mr. You is a pleasant 68-year-old gentleman, who was seen at [facility] on December 11, 2018. His problem list includes: 1. Congestive heart failure exacerbation: Mr. You is presenting with congestive heart failure exacerbation. He had an echocardiogram at this facility in 2017, at which time he had a normal ejection fraction of 55% to 60%. He will be admitted to the hospital for intravenous diuretics. 2. Chronic kidney disease stage 3: Creatinine is mildly elevated from the baseline today. We will recheck creatinine in the morning. 3. Hypokalemia: We will replace potassium. 4. Atrial fibrillation: Rate controlled. We will request Pharmacy to manage warfarin. 5. Hypertension: We will monitor vital signs and titrate antihypertensives as needed. Many thanks for allowing me to participate in your patient's care. Please feel free to contact me with any questions or concerns. LEVEL OF RISK: High. LEVEL OF COMPLEXITY: High. Job ID: [id number]
[2018-12-11 17:22] LABS: INR-International Normal Ratio 2.8; Prothrombin Time 29.1 SEC (12.0-14.7)
[2018-12-11] MEDS ORDERED: Warfarin Sodium 5 MG TAB PO SCH (18:00)
[2018-12-11] MEDS: Losartan 25 MG TAB PO SCH (21:57)
[2018-12-12] MEDS: Furosemide 40 MG/4 ML VIAL SLOW IVP SCH ×2 (05:49→15:57)
[2018-12-12 05:57] LABS: #Lymphocytes 1.3 thou/uL (1.20-3.40); #Monocytes 1.1 thou/uL (0.11-0.59); #Neutrophils 11.1 thou/uL (1.40-6.50); %Eosinophils 0.2 % (0.0-10.0); %Lymphocytes 9.6 % (21.0-51.0); %Neutrophils 82.2 % (42.0-75.0); Hemoglobin 13.4 g/dL (14.0-18.0); Mean Corpuscular HGB CONC 33.3 g/dL (32.0-36.0); Mean Corpuscular Hemoglobin 30.7 pg (27.0-31.0); Mean Corpuscular Volume 92.1 fL (78.0-98.0); Mean Platelet Volume 9.4 fL (7.4-10.4); Platelet Count 158 thou/uL (130-400); RBC Distribution Width 15.2 % (11.5-14.5); Red Blood Cell (RBC) Count 4.36 mill/uL (4.70-6.10); White Blood Cell (WBC) Count 13.5 thou/uL (4.8-10.8)
[2018-12-12 06:06] LABS: Anion Gap 14 mmol/L (10-20); BUN (Urea Nitrogen) 19 mg/dL (8.4-25.7); Calc. Creatinine Clearance 78 mL/min (70-130); Calcium 8.7 mg/dL (7.8-10.44); Carbon Dioxide 23 mmol/L (23-31); Chloride 105 mmol/L (98-107); Estimated GFR-MDRD 49; Glucose 90 mg/dL (80-115); Potassium 3.6 mmol/L (3.5-5.1); Sodium 138 mmol/L (136-145)
[2018-12-12] MEDS ORDERED: Loratadine 10 MG TAB PO PRN (07:47)
[2018-12-12] MEDS ORDERED: Sodium Chloride 0.65% Nasal 44 ML BOT EA NARE PRN (07:47)
[2018-12-12] MEDS ORDERED: Bisacodyl 10 MG SUPP PR PRN (07:47)
[2018-12-12] MEDS ORDERED: Zolpidem Tartrate 5 MG TAB PO PRN (07:47)
[2018-12-12] MEDS ORDERED: Diabetic Tussin 200 MG/10 ML UDCUP PO PRN (07:47)
[2018-12-12] MEDS ORDERED: Cepastat Lozenges 1 LOZ PO PRN (07:47)
[2018-12-12] MEDS ORDERED: Ondansetron PF 4 MG/2 ML Vial IVP PRN (07:47)
[2018-12-12] MEDS ORDERED: Artificial Tears 18 DROP/0.9 ML EA EYE PRN (07:47)
[2018-12-12] MEDS ORDERED: hydrALAZINE 20 MG/ML VIAL SLOW IVP PRN (07:47)
[2018-12-12] MEDS ORDERED: Loperamide HCl 2 MG CAP PO PRN (07:47)
[2018-12-12] MEDS ORDERED: Eucerin (Mineral Oil/Petrolatum,White) 30 gm Jar TOP PRN (07:47)
[2018-12-12] MEDS ORDERED: HYDROcodone/Acetaminophen 5/325 mg Tablet PO PRN (07:47)
[2018-12-12] MEDS: Potassium Chloride 10 MEQ TAB PO SCH (08:38)
[2018-12-12] MEDS: Losartan 25 MG TAB PO SCH (08:38)
[2018-12-12] MEDS: Atorvastatin Calcium 40 MG TAB PO SCH (08:39)
[2018-12-12] MEDS: Digoxin 0.125 MG TAB PO SCH (08:39)
[2018-12-12] MEDS ORDERED: Furosemide 40 MG/4 ML VIAL SLOW IVP SCH (09:00)
--- NOTE | 2018-12-12 10:08 | PDOC.PN ---
- Subjective Encounter Start Date: 12/12/18 Encounter Start Time: 07:40 -: old records requested/rev Patient seen and examined. No new complaints. No overnight events he still has lot of leg edema, but improving - Objective MAR Reviewed: Yes Vital Signs & Weight: Vital Signs (12 hours) Temp Pulse Resp BP BP Pulse Ox 12/12/18 08:39 105 H 12/12/18 07:46 97.9 F 96 20 142/74 H 94 L 12/12/18 04:20 108 H 18 107/65 95 12/11/18 23:11 98.6 F 108 H 20 110/55 L 96 Weight Weight 247 lb 1.6 oz I&O: 12/11/18 12/12/18 12/13/18 06:59 06:59 06:59 Intake Total 500 Output Total 1625 Balance -1125 Result Diagrams: 12/12/18 04:50 12/12/18 04:50 Radiology Reviewed by me: Yes EKG Reviewed by me: Yes Phys Exam - Physical Examination Constitutional: NAD HEENT: PERRLA, moist MMs, sclera anicteric Neck: no JVD, supple Respiratory: no wheezing, no rales, no rhonchi Cardiovascular: RRR, no significant murmur, no rub Gastrointestinal: soft, non-tender, no distention, positive bowel sounds Musculoskeletal: pulses present, edema present Neurological: non-focal, normal sensation, moves all 4 limbs Lymphatic: no nodes Psychiatric: normal affect, A&O x 3 Skin: no rash, normal turgor Dx/Plan (1) Acute on chronic diastolic ACC/AHA stage C congestive heart failure Code(s): I50.33 - ACUTE ON CHRONIC DIASTOLIC (CONGESTIVE) HEART FAILURE Status : Acute (2) Hypokalemia Code(s): E87.6 - HYPOKALEMIA Status: Acute (3) Atrial fibrillation, chronic Code(s): I48.2 - CHRONIC ATRIAL FIBRILLATION Status: Chronic (4) CKD (chronic kidney disease) stage 3, GFR 30-59 ml/min Code(s): N18.3 - CHRONIC KIDNEY DISEASE, STAGE 3 (MODERATE) Status: Chronic (5) Chronic anticoagulation Code(s): Z79.01 - [employer] (CURRENT) USE OF ANTICOAGULANTS Status: Chronic (6) Dyslipidemia Code(s): E78.5 - HYPERLIPIDEMIA, UNSPECIFIED Status: Chronic (7) Hypertension Code(s): I10 - ESSENTIAL (PRIMARY) HYPERTENSION Status: Chronic Qualifiers: (8) Mitral valve regurgitation Status: Chronic - Plan cont current plan of care * replace potassium * continue lasix * repeat labs tomorrow * will keep in hospital until euvolemic. * medication reviewed as below * symptomatic treatment Review of Systems - Review of Systems ENT: negative: Ear Pain, Ear Discharge, Nose Pain, Nose Discharge, Nose Congestion, Mouth Pain, Mouth Swelling, Throat Pain, Throat Swelling, Other Respiratory: negative: Cough, Dry, Shortness of Breath, Hemoptysis, SOB with Excertion, Pleuritic Pain, Sputum, Wheezing Cardiovascular: edema. negative: chest pain, palpitations, orthopnea, paroxysmal nocturnal dyspnea, light headedness, other Gastrointestinal: negative: Nausea, Vomiting, Abdominal Pain, Diarrhea, Constipation, Melena, Hematochezia, Other Genitourinary: negative: Dysuria, Frequency, Incontinence, Hematuria, Retention , Other Musculoskeletal: negative: Neck Pain, Shoulder Pain, Arm Pain, Back Pain, Hand Pain, Leg Pain, Foot Pain, Other Skin: negative: Rash, Lesions, Filipe, Bruising, Other - Medications/Allergies Allergies/Adverse Reactions: Allergies Allergy/AdvReac Type Severity Reaction Status Date / Time No Known Drug Allergies Allergy Verified 07/29/18 00:58 Medications: Current Medications Acetaminophen (Tylenol) 650 mg PO Q4H PRN PRN Reason: Headache/Fever/Mild Pain (1-3) Hydrocodone Bitart/Acetaminophen ([place] 5/325) 1 tab PO Q4H PRN PRN Reason: Moderate Pain (4-6) Artificial Tears (Tears Naturale) 2 drop EA EYE PRN PRN PRN Reason: Dry Eyes Atorvastatin Calcium (Lipitor) 40 mg PO DAILY [facility] Last Admin: 12/12/18 08:39 Dose: 40 mg Bisacodyl (Dulcolax) 10 mg PO DAILYPRN PRN PRN Reason: Constipation Bisacodyl (Dulcolax) 10 mg [place] DAILYPRN PRN PRN Reason: Constipation Calcitriol (Rocaltrol) 0.25 mcg PO Q2D@0900 [facility] Calcium Carbonate (Tums) 1,000 mg PO Q4H PRN PRN Reason: Heartburn or Indigestion Digoxin (Lanoxin) 0.125 mg PO DAILY [facility] Last Admin: 12/12/18 08:39 Dose: 0.125 mg Diltiazem HCl (Cardizem Cd) 240 mg PO DAILY [facility] Last Admin: 12/12/18 08:37 Dose: 240 mg Furosemide (Lasix) 40 mg SLOW IVP DAILY [facility] Furosemide (Lasix) 40 mg SLOW IVP 0600,1400 [facility] Last Admin: 12/12/18 05:49 Dose: 40 mg Guaifenesin (Robitussin Sf) 200 mg PO Q4H PRN PRN Reason: Cough Hydralazine HCl (Apresoline) 10 mg SLOW IVP Q4H PRN PRN Reason: SBP > 180 and HR < 70 Loperamide HCl (Imodium) 2 mg PO PRN PRN PRN Reason: Diarrhea/Loose Stools Loratadine (Claritin) 10 mg PO DAILYPRN PRN PRN Reason: Sinus Symptoms Losartan Potassium (Cozaar) 25 mg PO BID [facility] Last Admin: 12/12/18 08:38 Dose: 25 mg Mineral Oil/White Petrolatum (Eucerin Cream) 0 gm TOP BIDPRN PRN PRN Reason: Dry Skin Miscellaneous Medication (Pharmacy To Dose) 1 each PO PRN PRN PRN Reason: . Ondansetron HCl (Zofran Odt) 4 mg PO Q6H PRN PRN Reason: Nausea/Vomiting Ondansetron HCl (Zofran) 4 mg IVP Q6H PRN PRN Reason: Nausea/Vomiting Potassium Chloride (Klor-Con 10) 10 meq PO DAILY [facility] Last Admin: 12/12/18 08:38 Dose: 10 meq Sodium Chloride ([place] Nasal [place] 0.65%) 0 ml EA NARE QIDPRN PRN PRN Reason: Nasal Congestion Throat Lozenges (Cepastat Lozenges) 1 vonda PO Q2H PRN PRN Reason: Sore Throat Warfarin Sodium (Coumadin) 5 mg PO 1700 [facility] Zolpidem Tartrate (Ambien) 5 mg PO HSPRN PRN PRN Reason: Insomnia
[2018-12-12] MEDS: Calcium Carbonate 500 MG ChewTAB PO PRN ×2 (16:36→23:55)
[2018-12-12] MEDS: Warfarin Sodium 5 MG TAB PO SCH (16:37)
[2018-12-13] MEDS: Losartan 25 MG TAB PO SCH ×3 (00:23→21:08)
[2018-12-13] MEDS: Furosemide 40 MG/4 ML VIAL SLOW IVP SCH ×2 (05:12→16:27)
[2018-12-13 06:10] LABS: INR-International Normal Ratio 2.5; Prothrombin Time 26.9 SEC (12.0-14.7)
[2018-12-13 06:24] LABS: Anion Gap 16 mmol/L (10-20); BUN (Urea Nitrogen) 22 mg/dL (8.4-25.7); Calc. Creatinine Clearance 66 mL/min (70-130); Calcium 9.4 mg/dL (7.8-10.44); Carbon Dioxide 21 mmol/L (23-31); Chloride 103 mmol/L (98-107); Estimated GFR-MDRD 41; Glucose 94 mg/dL (80-115); Potassium 4.1 mmol/L (3.5-5.1); Sodium 136 mmol/L (136-145)
[2018-12-13] MEDS: Calcitriol 0.25 MCG CAP PO SCH (10:03)
[2018-12-13] MEDS: Atorvastatin Calcium 40 MG TAB PO SCH (10:03)
[2018-12-13] MEDS: Potassium Chloride 10 MEQ TAB PO SCH (10:03)
[2018-12-13] MEDS: Digoxin 0.125 MG TAB PO SCH (10:03)
--- NOTE | 2018-12-13 13:45 | PDOC.PN ---
- Subjective Encounter Start Date: 12/13/18 Encounter Start Time: 09:00 Subjective: feels better, but gets exertional sob -: no chest pain or palp -: telemetry reveals afib with rvr - Objective MAR Reviewed: Yes Vital Signs & Weight: Vital Signs (12 hours) Temp Pulse Pulse Pulse Pulse Resp BP 12/13/18 12:22 100 101 H 120 H 12/13/18 11:58 97.0 F L 68 20 12/13/18 08:39 93 12/13/18 07:44 97.5 F L 93 18 12/13/18 05:12 101 H 18 116/56 L BP BP BP Pulse Ox Pulse Ox Pulse Ox 12/13/18 12:22 101/66 126/73 95 98 12/13/18 11:58 126/73 99 12/13/18 08:39 12/13/18 07:44 98/62 96 12/13/18 05:12 96 Weight Admit Weight 247 lb 1.6 oz Weight 247 lb I&O: 12/12/18 12/13/18 12/14/18 06:59 06:59 06:59 Intake Total 500 900 Output Total 1625 1800 Balance -1125 -900 Result Diagrams: 12/12/18 04:50 12/13/18 05:12 Phys Exam - Physical Examination HEENT: PERRLA, moist MMs Neck: no JVD, supple Respiratory: no wheezing rales+ Cardiovascular: no significant murmur, irregular Gastrointestinal: soft, non-tender, positive bowel sounds Musculoskeletal: pulses present, edema present Neurological: non-focal, moves all 4 limbs Psychiatric: normal affect, A&O x 3 Dx/Plan (1) Acute on chronic diastolic ACC/AHA stage C congestive heart failure Code(s): I50.33 - ACUTE ON CHRONIC DIASTOLIC (CONGESTIVE) HEART FAILURE Status : Acute (2) Atrial fibrillation, chronic Code(s): I48.2 - CHRONIC ATRIAL FIBRILLATION Status: Chronic Comment: with rvr off and on. (3) CKD (chronic kidney disease) stage 3, GFR 30-59 ml/min Code(s): N18.3 - CHRONIC KIDNEY DISEASE, STAGE 3 (MODERATE) Status: Chronic (4) Dyslipidemia Code(s): E78.5 - HYPERLIPIDEMIA, UNSPECIFIED Status: Chronic (5) Hypertension Code(s): I10 - ESSENTIAL (PRIMARY) HYPERTENSION Status: Chronic Qualifiers: (6) Mitral valve regurgitation Status: Chronic Qualifiers: Cardiac valve disease etiology: nonrheumatic Qualified Code(s): I34.0 - Nonrheumatic mitral (valve) insufficiency - Plan gets hypotensive with aggresive diuresis plus ckd -: still has lot of peripheral edema and exetional sob -: continue lasix, dig, cozaar, cardizem, coumadin and lipitor -: cardiology consultation -: change status to inpatient, inr is therapeutic * . Review of Systems - Medications/Allergies Allergies/Adverse Reactions: Allergies Allergy/AdvReac Type Severity Reaction Status Date / Time No Known Drug Allergies Allergy Verified 07/29/18 00:58 Medications: Current Medications Acetaminophen (Tylenol) 650 mg PO Q4H PRN PRN Reason: Headache/Fever/Mild Pain (1-3) Hydrocodone Bitart/Acetaminophen ([place] 5/325) 1 tab PO Q4H PRN PRN Reason: Moderate Pain (4-6) Artificial Tears (Tears Naturale) 2 drop EA EYE PRN PRN PRN Reason: Dry Eyes Atorvastatin Calcium (Lipitor) 40 mg PO DAILY [facility] Last Admin: 12/13/18 10:03 Dose: 40 mg Bisacodyl (Dulcolax) 10 mg PO DAILYPRN PRN PRN Reason: Constipation Bisacodyl (Dulcolax) 10 mg [place] DAILYPRN PRN PRN Reason: Constipation Calcitriol (Rocaltrol) 0.25 mcg PO Q2D@0900 [facility] Last Admin: 12/13/18 10:03 Dose: 0.25 mcg Calcium Carbonate (Tums) 1,000 mg PO Q4H PRN PRN Reason: Heartburn or Indigestion Last Admin: 12/12/18 23:55 Dose: 1,000 mg Digoxin (Lanoxin) 0.125 mg PO DAILY [facility] Last Admin: 12/13/18 10:03 Dose: 0.125 mg Diltiazem HCl (Cardizem Cd) 240 mg PO DAILY [facility] Last Admin: 12/13/18 08:39 Dose: Not Given Furosemide (Lasix) 40 mg SLOW IVP 0600,1400 [facility] Last Admin: 12/13/18 05:12 Dose: 40 mg Guaifenesin (Robitussin Sf) 200 mg PO Q4H PRN PRN Reason: Cough Hydralazine HCl (Apresoline) 10 mg SLOW IVP Q4H PRN PRN Reason: SBP > 180 and HR < 70 Loperamide HCl (Imodium) 2 mg PO PRN PRN PRN Reason: Diarrhea/Loose Stools Loratadine (Claritin) 10 mg PO DAILYPRN PRN PRN Reason: Sinus Symptoms Losartan Potassium (Cozaar) 25 mg PO BID [facility] Last Admin: 12/13/18 08:39 Dose: Not Given Mineral Oil/White Petrolatum (Eucerin Cream) 0 gm TOP BIDPRN PRN PRN Reason: Dry Skin Miscellaneous Medication (Pharmacy To Dose) 1 each PO PRN PRN PRN Reason: . Ondansetron HCl (Zofran Odt) 4 mg PO Q6H PRN PRN Reason: Nausea/Vomiting Ondansetron HCl (Zofran) 4 mg IVP Q6H PRN PRN Reason: Nausea/Vomiting Potassium Chloride (Klor-Con 10) 10 meq PO DAILY [facility] Last Admin: 12/13/18 10:03 Dose: 10 meq Sodium Chloride ([place] Nasal [place] 0.65%) 0 ml EA NARE QIDPRN PRN PRN Reason: Nasal Congestion Throat Lozenges (Cepastat Lozenges) 1 vonda PO Q2H PRN PRN Reason: Sore Throat Warfarin Sodium (Coumadin) 5 mg PO 1700 [facility] Last Admin: 12/12/18 16:37 Dose: 5 mg Zolpidem Tartrate (Ambien) 5 mg PO HSPRN PRN PRN Reason: Insomnia
[2018-12-13] MEDS: Warfarin Sodium 5 MG TAB PO SCH (16:27)
[2018-12-13] MEDS: Carvedilol 6.25 MG TAB PO SCH (16:27)
[2018-12-13] MEDS: Calcium Carbonate 500 MG ChewTAB PO PRN (21:09)
[2018-12-14] MEDS: Furosemide 40 MG/4 ML VIAL SLOW IVP SCH ×2 (05:38→13:37)
[2018-12-14 08:42] LABS: Anion Gap 15 mmol/L (10-20); BUN (Urea Nitrogen) 22 mg/dL (8.4-25.7); Calc. Creatinine Clearance 73 mL/min (70-130); Calcium 9.2 mg/dL (7.8-10.44); Carbon Dioxide 24 mmol/L (23-31); Chloride 104 mmol/L (98-107); Estimated GFR-MDRD 47; Glucose 93 mg/dL (80-115); Potassium 3.6 mmol/L (3.5-5.1); Sodium 139 mmol/L (136-145)
[2018-12-14] MEDS: Atorvastatin Calcium 40 MG TAB PO SCH (09:04)
[2018-12-14] MEDS: Digoxin 0.125 MG TAB PO SCH (09:05)
[2018-12-14] MEDS: Potassium Chloride 10 MEQ TAB PO SCH (09:06)
[2018-12-14] MEDS: Carvedilol 6.25 MG TAB PO SCH ×2 (09:16→16:56)
[2018-12-14] MEDS: Losartan 25 MG TAB PO SCH ×2 (09:16→20:16)
--- NOTE | 2018-12-14 12:49 | PDOC.PN ---
- Subjective Encounter Start Date: 12/14/18 Encounter Start Time: 08:20 Subjective: breathing better, no chest pain or palp -: is amb in hallway -: is wearing cristóbal hose - Objective MAR Reviewed: Yes Vital Signs & Weight: Vital Signs (12 hours) Temp Pulse Pulse Pulse Resp BP BP 12/14/18 12:39 97.5 F L 86 24 H 12/14/18 10:21 86 105 H 129/70 12/14/18 09:16 95/71 12/14/18 09:05 130 H 12/14/18 07:21 98.1 F 79 18 12/14/18 05:15 96 18 12/14/18 04:16 BP BP Pulse Ox Pulse Ox Pulse Ox 12/14/18 12:39 138/63 96 12/14/18 10:21 101/68 96 95 12/14/18 09:16 12/14/18 09:05 12/14/18 07:21 95 12/14/18 05:15 98/69 96 12/14/18 04:16 92 L Weight Admit Weight 247 lb 1.6 oz Weight 244 lb 6.4 oz I&O: 12/13/18 12/14/18 12/15/18 06:59 06:59 06:59 Intake Total 900 900 Output Total 1800 1075 Balance -900 -175 Result Diagrams: 12/12/18 04:50 12/14/18 07:55 Phys Exam - Physical Examination HEENT: PERRLA, moist MMs Neck: no JVD, supple Respiratory: no wheezing basal rales+ Cardiovascular: no significant murmur, irregular Gastrointestinal: soft, non-tender, no distention, positive bowel sounds Musculoskeletal: pulses present, edema present Neurological: non-focal, moves all 4 limbs Psychiatric: normal affect, A&O x 3 Dx/Plan (1) Acute on chronic diastolic ACC/AHA stage C congestive heart failure Code(s): I50.33 - ACUTE ON CHRONIC DIASTOLIC (CONGESTIVE) HEART FAILURE Status : Acute (2) Atrial fibrillation, chronic Code(s): I48.2 - CHRONIC ATRIAL FIBRILLATION Status: Chronic Comment: with rvr off and on. (3) CKD (chronic kidney disease) stage 3, GFR 30-59 ml/min Code(s): N18.3 - CHRONIC KIDNEY DISEASE, STAGE 3 (MODERATE) Status: Chronic (4) Dyslipidemia Code(s): E78.5 - HYPERLIPIDEMIA, UNSPECIFIED Status: Chronic (5) Hypertension Code(s): I10 - ESSENTIAL (PRIMARY) HYPERTENSION Status: Chronic Qualifiers: (6) Mitral valve regurgitation Status: Chronic Qualifiers: Cardiac valve disease etiology: nonrheumatic Qualified Code(s): I34.0 - Nonrheumatic mitral (valve) insufficiency - Plan d/w will consult , has mod to severe mitral regurg, mod -: afib with rvr worse with even min exertion, stays rate controlled on bed -: is on coreg, dig, lasix, cozaar, coumadin, lipitor -: hemostable -: gave updates to patient and * . Review of Systems - Medications/Allergies Allergies/Adverse Reactions: Allergies Allergy/AdvReac Type Severity Reaction Status Date / Time No Known Drug Allergies Allergy Verified 07/29/18 00:58 Medications: Current Medications Acetaminophen (Tylenol) 650 mg PO Q4H PRN PRN Reason: Headache/Fever/Mild Pain (1-3) Hydrocodone Bitart/Acetaminophen ([place] 5/325) 1 tab PO Q4H PRN PRN Reason: Moderate Pain (4-6) Artificial Tears (Tears Naturale) 2 drop EA EYE PRN PRN PRN Reason: Dry Eyes Atorvastatin Calcium (Lipitor) 40 mg PO DAILY [facility] Last Admin: 12/14/18 09:04 Dose: 40 mg Bisacodyl (Dulcolax) 10 mg PO DAILYPRN PRN PRN Reason: Constipation Bisacodyl (Dulcolax) 10 mg [place] DAILYPRN PRN PRN Reason: Constipation Calcitriol (Rocaltrol) 0.25 mcg PO Q2D@0900 [facility] Last Admin: 12/13/18 10:03 Dose: 0.25 mcg Calcium Carbonate (Tums) 1,000 mg PO Q4H PRN PRN Reason: Heartburn or Indigestion Last Admin: 12/13/18 21:09 Dose: 1,000 mg Carvedilol (Coreg) 6.25 mg PO BID-[facility] Last Admin: 12/14/18 09:16 Dose: Not Given Digoxin (Lanoxin) 0.125 mg PO DAILY [facility] Last Admin: 12/14/18 09:05 Dose: 0.125 mg Furosemide (Lasix) 40 mg SLOW IVP 0600,1400 [facility] Last Admin: 12/14/18 05:38 Dose: Not Given Guaifenesin (Robitussin Sf) 200 mg PO Q4H PRN PRN Reason: Cough Hydralazine HCl (Apresoline) 10 mg SLOW IVP Q4H PRN PRN Reason: SBP > 180 and HR < 70 Loperamide HCl (Imodium) 2 mg PO PRN PRN PRN Reason: Diarrhea/Loose Stools Loratadine (Claritin) 10 mg PO DAILYPRN PRN PRN Reason: Sinus Symptoms Losartan Potassium (Cozaar) 25 mg PO BID [facility] Last Admin: 12/14/18 09:16 Dose: Not Given Mineral Oil/White Petrolatum (Eucerin Cream) 0 gm TOP BIDPRN PRN PRN Reason: Dry Skin Miscellaneous Medication (Pharmacy To Dose) 1 each PO PRN PRN PRN Reason: . Ondansetron HCl (Zofran Odt) 4 mg PO Q6H PRN PRN Reason: Nausea/Vomiting Ondansetron HCl (Zofran) 4 mg IVP Q6H PRN PRN Reason: Nausea/Vomiting Potassium Chloride (Klor-Con 10) 10 meq PO DAILY [facility] Last Admin: 12/14/18 09:06 Dose: 10 meq Sodium Chloride ([place] Nasal [place] 0.65%) 0 ml EA NARE QIDPRN PRN PRN Reason: Nasal Congestion Throat Lozenges (Cepastat Lozenges) 1 vonda PO Q2H PRN PRN Reason: Sore Throat Zolpidem Tartrate (Ambien) 5 mg PO HSPRN PRN PRN Reason: Insomnia
--- NOTE | 2018-12-14 15:46 | CON ---
DATE OF CONSULTATION: 12/14/2018 REASON FOR CONSULTATION: Congestive heart failure and atrial arrhythmias. HISTORY OF PRESENT ILLNESS: Mr. Tom You is a 68-year-old gentleman with history of valvular heart disease; heart failure, systolic, diastolic, combined; atrial arrhythmias, admitted with refractory heart failure. Mr. You came to the hospital, 12/11/2018, with lower extremity swelling and difficulty lying down. He has been having increasing amounts of fluid retention, and he is becoming more and more refractory to the oral torsemide. He finally came to the emergency room with refractory heart failure. No chest pain. No syncope or near syncope. REVIEW OF SYSTEMS: CONSTITUTIONAL: No significant weight loss. He has gained weight with fluid. VISION: No changes. HEARING: No changes. PULMONARY: Positive for shortness of breath. CARDIAC: Positive for shortness of breath, orthopnea, and swelling. GASTROINTESTINAL: No nausea, vomiting, or diarrhea. SKIN: No rashes. NEUROLOGIC: No unilateral weakness or numbness. PSYCHIATRIC: No unusual depression or anxiety. PAST MEDICAL HISTORY: History of congestive heart failure, history of aortic and mitral valvular heart disease, chronic atrial fibrillation. PAST SURGICAL HISTORY: Left knee surgery. SOCIAL HISTORY: No tobacco or alcohol. FAMILY HISTORY: Negative for heart disease at a young age. ALLERGIES: NONE KNOWN. MEDICATIONS: Prior to admission, 1. Losartan 25 mg twice a day. 2. Torsemide 60 mg a day. 3. Digoxin 0.125 mg a day. 4. Potassium. 5. Diltiazem 240 mg a day. PHYSICAL EXAMINATION: GENERAL: This is a pleasant 68-year-old gentleman, resting comfortably. He is able to lie down at about a 20-degree angle, but cannot lie flat. HEENT: Eyes, sclerae nonicteric. Mouth, mucous membranes are moist. NECK: Supple. No lymphadenopathy. LUNGS: Clear. CARDIAC: Irregularly irregular. There is a 2 to 3/6 apical holosystolic murmur, it sounds like mitral regurgitation. There is also systolic murmur at the left lower sternal border. ABDOMEN: Soft and nontender. EXTREMITIES: There is severe peripheral edema. Peripheral pulses, I can feel femoral pulses and popliteal pulses bilaterally. I cannot feel the pedal pulses probably mostly related to the severe edema. PERTINENT LABORATORY DATA: Creatinine 1.67 with an estimated GFR of 41 with a stage III renal failure. BNP 742. INR was 2.5. IMAGING STUDIES: The patient has, on the EKG, atrial fibrillation with intermittent very rapid tachycardia, maybe some type of atrial arrhythmia through rapid ventricular response. Otherwise, EKG, atrial fibrillation with a rapid ventricular rate. Reviewing the records, the patient does have a history of congestive heart failure, systolic-diastolic mixed, previously followed by lease buyer in, I believe, the [facility] area. He was seen here in July. He, in my understanding, was initially planned to see the lease buyer, but has not done so. He now lives in [place], but works in [place]. Review of the echocardiogram in July showed ejection fraction of 55% to 60% with severe left atrial enlargement, [id number] mitral regurgitation, moderate aortic stenosis. ASSESSMENT: 1. Congestive heart failure, predominantly diastolic. 2. Mitral and aortic valvular heart disease. 3. Chronic atrial fibrillation. He says he has been cardioverted, but somewhat he has gone back into atrial fibrillation. 4. Tachycardia. Mostly it looks like atrial fibrillation with a rapid ventricular response. Some of it maybe some type of an atrial tachycardia at rate of 250. 5. Stage III renal failure. 6. Intolerance to Xarelto and Eliquis, both cause severe bleeding. He said he cannot tolerate these medicines. He did better on Coumadin. 7. At this point, the patient's prognosis long-term is guarded, may need intervention. PLAN: 1. Echocardiogram to be repeated. 2. Consult Electrophysiology. 3. Pretty significant chance that he may need cardiac catheterization and surgery on his heart valves. I can direct further therapy based on the hospital course. 4. Long-term prognosis is guarded. Job ID: [id number]
[2018-12-14] MEDS: Calcium Carbonate 500 MG ChewTAB PO PRN (20:26)
--- NOTE | 2018-12-14 20:40 | CON ---
DATE OF CONSULTATION: REASON FOR CONSULTATION: Atrial fibrillation. HISTORY OF PRESENT ILLNESS: Mr. You is a very pleasant 68-year-old gentleman with a known history of atrial fibrillation, adniqhai-gh-gikfxl mitral valve regurgitation and also congestive heart failure. He had been noticing increased shortness of breath with orthopnea over the past 3 weeks and had gradually increased his torsemide without substantial effect. In the week prior to his admission, his lower extremities began to swell up and retain fluid and even some weeping edema from his right castellanos. He also endorses having had palpitations transiently. In the past, he has been hospitalized for congestive heart failure and atrial fibrillation in July of 2018, but endorses being diagnosed with atrial fibrillation approximately 3 to 4 years ago and having undergone successful cardioversion with early recurrence of atrial fibrillation fairly quickly. He has not had any antiarrhythmic therapy. He does not regularly follow with a dot compliance coordinator, but continues to have recurrent congestive heart failure symptoms prompting hospitalization for fluid management in the setting of atrial fibrillation and mitral valve disease. Mr. You today is feeling well. He denies any heart racing, palpitations, chest pain, pressure, syncope, near syncope, stroke, or stroke-like symptoms. He is reporting lower extremity edema and weight gain. He is on warfarin for anticoagulation and has had severe GI bleed with therapy on Xarelto in the past. REVIEW OF SYSTEMS: A 12-point review of systems is conducted and is negative except that listed above in the HPI. PAST MEDICAL HISTORY: 1. Chronic atrial fibrillation, likely persistent. 2. Hypertension. 3. Congestive heart failure, preserved LVEF 55% to 60% by echo on 07/29/2018, [id number] MR, [id number] left atrial dilation. PAST SURGICAL HISTORY: Left knee surgery to repair ligaments. SOCIAL HISTORY: Denies alcohol, tobacco, or illicit drug use. 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 FAMILY HISTORY: Noncontributory. Negative for early onset CAD. Negative for sudden cardiac , but strong family history for mitral valve disease requiring surgical intervention in his brother, multiple nephews, and uncle. ALLERGIES: NO KNOWN DRUG ALLERGIES. HOME MEDICATIONS: Include: 1. Cozaar 25 mg b.i.d. 2. Calcitriol 0.25 mcg every other day. 3. Torsemide 60 mg daily. 4. Digoxin 125 mcg daily. 5. Atorvastatin 40 mg daily. 6. Potassium chloride 10 mEq daily. 7. Diltiazem 240 mg daily. 8. Warfarin 5 mg daily/as directed. PHYSICAL EXAMINATION: VITAL SIGNS: Temperature 97.5 degrees Fahrenheit, pulse 86, blood pressure 138/63, respirations 20, oxygen is 96% on room air. GENERAL: The patient is alert and oriented. Speech is clear. Affect is appropriate. He is in no apparent distress, resting comfortably upright in the chair for exam. HEENT: His sclerae anicteric. EOMs are intact. Oral mucosa is moist and pink with adequate dentition. NECK: Supple. Positive for jugular venous distention. LUNGS: Some bibasilar crackles, clear in the upper vazquez. HEART: Heart rate is irregularly irregular and somewhat tachycardic. PMI is nondisplaced. ABDOMEN: Soft and nontender without palpable masses. Hepatojugular reflux is positive. EXTREMITIES: Warm and dry to touch. Well perfused without clubbing or cyanosis, but do exhibit 3+ pitting edema bilaterally. NEUROLOGIC: Grossly intact and nonfocal. Gait was not assessed. DATABASE: WBC 13.5, hemoglobin 13.4, hematocrit 40.2, platelet count is 158. INR 2.5. Potassium 3.6, creatinine 1.49. Liver enzymes are within normal limits. Serial troponins were negative. BNP 742 on admission. Echocardiogram from 07/29/2018, ejection fraction 55% to 60%, left atrium moderate to severely dilated, mitral regurgitation moderate to severe, mildly elevated PAP, mild TR, mild AI, moderate , peak gradient 50 mmHg systolic. Telemetry and EKGs, all were personally reviewed and reflect atrial fibrillation with RVR. Also, nonsustained ventricular tachycardia is seen. IMPRESSION: 1. Chronic atrial fibrillation with previously attempted cardioversion, approximately 3 or 4 years ago, poor rate control. 2. Nonsustained ventricular tachycardia. 3. History of preserved left ventricular ejection fraction by echocardiogram 5 months ago at 45% by nuclear stress test. 4. Acute on chronic congestive heart failure with exacerbation. 5. Moderate to severe mitral regurgitation. 6. Moderate to severe left atrial dilation. 7. History of gastrointestinal bleed on Xarelto. 8. Elevated CHADS-VASc score of 3 on the basis of hypertension, heart failure, and advancing age. Oral anticoagulation is indicated. He is currently therapeutic on warfarin and tolerating this well. PLAN AND RECOMMENDATIONS: 1. Rate control for his atrial fibrillation. 2. Repeat echocardiogram for further evaluation of his mitral valve, which is currently ordered but has not been conducted or performed at this time. 3. Optimize heart failure. 4. Consider amiodarone plus or minus cardioversion. Long-term PVAI could be considered, which would certainly be deferred if there is any indication for surgical repair of his valve. If his mitral valve regurgitation is severe enough to undergo to necessitate surgical repair, we would also recommend he undergo Maze and left atrial appendage closure procedure simultaneously. In the meantime, we will adjust medications for rate control. Continue with oral anticoagulation and await echocardiogram results to see if mitral valve disease has progressed. Thank you for allowing me to participate in the care of this patient. Job ID: [id number]
[2018-12-15 05:35] LABS: Digoxin 1.28 ng/mL (0.8-2.0)
[2018-12-15 05:37] LABS: Anion Gap 13 mmol/L (10-20); BUN (Urea Nitrogen) 24 mg/dL (8.4-25.7); Calc. Creatinine Clearance 74 mL/min (70-130); Calcium 9.6 mg/dL (7.8-10.44); Carbon Dioxide 26 mmol/L (23-31); Chloride 104 mmol/L (98-107); Estimated GFR-MDRD 47; Glucose 98 mg/dL (80-115); Potassium 3.9 mmol/L (3.5-5.1); Sodium 139 mmol/L (136-145)
[2018-12-15] MEDS: Furosemide 40 MG/4 ML VIAL SLOW IVP SCH ×2 (05:41→14:29)
[2018-12-15] MEDS: Carvedilol 6.25 MG TAB PO SCH ×3 (08:37→19:32)
[2018-12-15] MEDS: Digoxin 0.125 MG TAB PO SCH (08:37)
[2018-12-15] MEDS: Potassium Chloride 10 MEQ TAB PO SCH (08:37)
[2018-12-15] MEDS: Atorvastatin Calcium 40 MG TAB PO SCH (08:37)
[2018-12-15] MEDS: Calcitriol 0.25 MCG CAP PO SCH (08:37)
[2018-12-15] MEDS: Losartan 25 MG TAB PO SCH ×2 (08:37→19:32)
[2018-12-15] MEDS: Calcium Carbonate 500 MG ChewTAB PO PRN ×2 (11:08→19:32)
[2018-12-15] MEDS: Ondansetron ODT 4 MG TAB PO PRN (11:08)
--- NOTE | 2018-12-15 11:46 | PDOC.PN ---
- Subjective Encounter Start Date: 12/15/18 Encounter Start Time: 07:30 Subjective: no sob or palp -: telemetry shows rvr on minimal exertion -: at bedside - Objective MAR Reviewed: Yes Vital Signs & Weight: Vital Signs (12 hours) Temp Pulse Resp BP BP BP Pulse Ox 12/15/18 11:10 93 20 150/111 H 98 12/15/18 08:37 86 109/68 97 12/15/18 07:17 97.6 F 86 18 111/71 97 12/15/18 04:00 97.4 F L 81 16 110/69 99 12/15/18 00:00 97.5 F L 47 L 20 111/83 98 Weight Admit Weight 247 lb 1.6 oz Weight 245 lb 11.2 oz I&O: 12/14/18 12/15/18 12/16/18 06:59 06:59 06:59 Intake Total 900 320 Output Total 1075 600 Balance -175 -280 Result Diagrams: 12/12/18 04:50 12/15/18 04:20 Phys Exam - Physical Examination HEENT: PERRLA, moist MMs Neck: no JVD, supple Respiratory: no wheezing, no rales Cardiovascular: no significant murmur, irregular Gastrointestinal: soft, non-tender, positive bowel sounds Musculoskeletal: pulses present, edema present Neurological: non-focal, moves all 4 limbs Psychiatric: normal affect, A&O x 3 Dx/Plan (1) Acute on chronic diastolic ACC/AHA stage C congestive heart failure Code(s): I50.33 - ACUTE ON CHRONIC DIASTOLIC (CONGESTIVE) HEART FAILURE Status : Acute (2) Atrial fibrillation, chronic Code(s): I48.2 - CHRONIC ATRIAL FIBRILLATION Status: Chronic Comment: with rvr off and on. (3) CKD (chronic kidney disease) stage 3, GFR 30-59 ml/min Code(s): N18.3 - CHRONIC KIDNEY DISEASE, STAGE 3 (MODERATE) Status: Chronic (4) Dyslipidemia Code(s): E78.5 - HYPERLIPIDEMIA, UNSPECIFIED Status: Chronic (5) Hypertension Code(s): I10 - ESSENTIAL (PRIMARY) HYPERTENSION Status: Chronic Qualifiers: (6) Mitral valve regurgitation Status: Chronic Qualifiers: Cardiac valve disease etiology: nonrheumatic Qualified Code(s): I34.0 - Nonrheumatic mitral (valve) insufficiency - Plan is on increased dose of coreg tid now -: d/w , he will d/w reg valves -: echo shows ef of 50%, mod to severe mitral regurg, pulm press 50mmhg -: creatinine holding up with gentle diuresis -: continue coumadin, dig, cozaar, lipitor. * . Review of Systems - Medications/Allergies Allergies/Adverse Reactions: Allergies Allergy/AdvReac Type Severity Reaction Status Date / Time No Known Drug Allergies Allergy Verified 07/29/18 00:58 Medications: Current Medications Acetaminophen (Tylenol) 650 mg PO Q4H PRN PRN Reason: Headache/Fever/Mild Pain (1-3) Hydrocodone Bitart/Acetaminophen ([place] 5/325) 1 tab PO Q4H PRN PRN Reason: Moderate Pain (4-6) Artificial Tears (Tears Naturale) 2 drop EA EYE PRN PRN PRN Reason: Dry Eyes Atorvastatin Calcium (Lipitor) 40 mg PO DAILY [facility] Last Admin: 12/15/18 08:37 Dose: 40 mg Bisacodyl (Dulcolax) 10 mg PO DAILYPRN PRN PRN Reason: Constipation Bisacodyl (Dulcolax) 10 mg [place] DAILYPRN PRN PRN Reason: Constipation Calcitriol (Rocaltrol) 0.25 mcg PO Q2D@0900 [facility] Last Admin: 12/15/18 08:37 Dose: 0.25 mcg Calcium Carbonate (Tums) 1,000 mg PO Q4H PRN PRN Reason: Heartburn or Indigestion Last Admin: 12/15/18 11:08 Dose: 1,000 mg Carvedilol (Coreg) 6.25 mg PO TID [facility] Digoxin (Lanoxin) 0.125 mg PO DAILY [facility] Last Admin: 12/15/18 08:37 Dose: 0.125 mg Furosemide (Lasix) 40 mg SLOW IVP 0600,1400 [facility] Last Admin: 12/15/18 05:41 Dose: 40 mg Guaifenesin (Robitussin Sf) 200 mg PO Q4H PRN PRN Reason: Cough Hydralazine HCl (Apresoline) 10 mg SLOW IVP Q4H PRN PRN Reason: SBP > 180 and HR < 70 Loperamide HCl (Imodium) 2 mg PO PRN PRN PRN Reason: Diarrhea/Loose Stools Loratadine (Claritin) 10 mg PO DAILYPRN PRN PRN Reason: Sinus Symptoms Losartan Potassium (Cozaar) 25 mg PO BID [facility] Last Admin: 12/15/18 08:37 Dose: 25 mg Mineral Oil/White Petrolatum (Eucerin Cream) 0 gm TOP BIDPRN PRN PRN Reason: Dry Skin Miscellaneous Medication (Pharmacy To Dose) 1 each PO PRN PRN PRN Reason: . Ondansetron HCl (Zofran Odt) 4 mg PO Q6H PRN PRN Reason: Nausea/Vomiting Last Admin: 12/15/18 11:08 Dose: 4 mg Ondansetron HCl (Zofran) 4 mg IVP Q6H PRN PRN Reason: Nausea/Vomiting Potassium Chloride (Klor-Con 10) 10 meq PO DAILY [facility] Last Admin: 12/15/18 08:37 Dose: 10 meq Sodium Chloride ([place] Nasal [place] 0.65%) 0 ml EA NARE QIDPRN PRN PRN Reason: Nasal Congestion Throat Lozenges (Cepastat Lozenges) 1 vonda PO Q2H PRN PRN Reason: Sore Throat Zolpidem Tartrate (Ambien) 5 mg PO HSPRN PRN PRN Reason: Insomnia
--- NOTE | 2018-12-15 13:59 | PRG ---
DATE OF SERVICE: 12/15/2018 SUBJECTIVE: Mr. You states he is feeling somewhat better, he is breathing somewhat better. He is still very volume overloaded. OBJECTIVE: VITAL SIGNS: His blood pressure earlier in the day is 111/71, most recently 150/111 is the recorded blood pressure, I am skeptical of that blood pressure as there was another one at 109/68. Pulse is in the 90s, irregular. LUNGS: Clear. CARDIAC: Irregularly irregular. ASSESSMENT: 1. Congestive heart failure, predominantly valvular, technically it is diastolic as the systolic appears within normal limits. 2. Moderate to severe mitral regurgitation. 3. Chronic atrial fibrillation. 4. Intermittent, what looks like a very rapid atrial tachycardia. PLAN: 1. Continue the diuresis. 2. Coumadin is on hold. 3. Consideration for cardiac catheterization later in the week. The patient may need mitral and aortic valve replacement. We will continue to follow with you. Job ID: [id number]
--- NOTE | 2018-12-15 14:16 | PDOC.CTH ---
Cardiology Progress Note - Subjective EP PROGRESS NOTE: 12/15/18 Patient seen and evaluated. No new cardiac concerns or complaints today. Denies heart racing, palpitations, chest pain/pressure, dizziness, or passing out. No stroke like symptoms.Having less SOB. + orthopnea - Objective Vital Signs Temp Pulse Resp BP BP BP Pulse Ox 12/15/18 11:10 93 20 150/111 H 98 12/15/18 08:37 86 109/68 97 12/15/18 07:17 97.6 F 86 18 111/71 97 12/15/18 04:00 97.4 F L 81 16 110/69 99 Admit Weight 247 lb 1.6 oz Weight 245 lb 11.2 oz 12/14/18 12/15/18 12/16/18 06:59 06:59 06:59 Intake Total 900 320 Output Total 1075 600 Balance -175 -280 - Physical Examination General/Neuro: alert & oriented x3, NAD Neck: carotid US brisk, no JVD present Lungs: CTA, unlabored respirations Heart: other: Abdomen: NT/ND, soft - Telemetry Telemetry Rhythm: AF 90-120 - Labs Result Diagrams: 12/12/18 04:50 12/15/18 04:20 Troponin/CKMB CK-MB (CK-2) 2.3 ng/mL (0-6.6) 12/11/18 11:50 Troponin I 0.020 ng/mL (< 0.028) 12/11/18 17:57 - Assessment/Plan IMPRESSION: 1. Chronic atrial fibrillation with previously attempted cardioversion, approximately 3 or 4 years ago, poor rate control. - Dig level 1.58 - increased coreg 6.25mg from BID to TID. BP slightly low with continued lasix which will limit aggressive rate control with BB or CCB 2. Nonsustained ventricular tachycardia. -optimize BB therapy with Coreg for now and monitor 3. History of preserved left ventricular ejection fraction by echocardiogram 5 months ago at 45% by nuclear stress test. 4. Acute on chronic congestive heart failure with exacerbation. -continue lasix 5. Moderate to severe mitral regurgitation. -per cardiology -if sx required we would also recommend he undergo Maze and left atrial appendage closure procedure simultaneously. 6. Moderate to severe left atrial dilation. 7. Elevated CHADS-VASc score of 3 -on the basis of hypertension, heart failure, and advancing age. -Oral anticoagulation is indicated. He is currently therapeutic on warfarin and tolerating this well. - History of gastrointestinal bleed on Xarelto and Eliquis Continue OAC and rate control for AF. Will discuss valve with Dr Shaikh
[2018-12-16] MEDS: Furosemide 40 MG/4 ML VIAL SLOW IVP SCH ×2 (06:05→13:05)
[2018-12-16 06:21] LABS: INR-International Normal Ratio 2.3; PTT 49.4 SEC (22.9-36.1); Prothrombin Time 25.4 SEC (12.0-14.7)
[2018-12-16 06:44] LABS: Anion Gap 12 mmol/L (10-20); BUN (Urea Nitrogen) 23 mg/dL (8.4-25.7); Calc. Creatinine Clearance 76 mL/min (70-130); Calcium 9.2 mg/dL (7.8-10.44); Carbon Dioxide 25 mmol/L (23-31); Chloride 105 mmol/L (98-107); Estimated GFR-MDRD 49; Glucose 95 mg/dL (80-115); Potassium 3.4 mmol/L (3.5-5.1); Sodium 139 mmol/L (136-145)
[2018-12-16] MEDS: Digoxin 0.125 MG TAB PO SCH (08:23)
[2018-12-16] MEDS: Potassium Chloride 10 MEQ TAB PO SCH (08:23)
[2018-12-16] MEDS: Atorvastatin Calcium 40 MG TAB PO SCH (08:23)
[2018-12-16] MEDS: Losartan 25 MG TAB PO SCH ×2 (08:23→19:32)
[2018-12-16] MEDS: Carvedilol 6.25 MG TAB PO SCH ×2 (08:24→16:50)
--- NOTE | 2018-12-16 11:12 | PRG ---
DATE OF SERVICE: 12/16/2018 SUBJECTIVE: Mr. You is feeling better. Breathing is improved. He is really back to baseline. OBJECTIVE: VITAL SIGNS: Blood pressure 117/84, pulse is 80, it is irregular. LUNGS: Clear. CARDIAC: Normal S1, normal S2. The murmur is soft. ABDOMEN: Soft and nontender. EXTREMITIES: Show only moderate edema. DIAGNOSTIC DATA: I did review the echocardiogram. The ejection fraction is normal. There is moderate to severe mitral regurgitation. It looks like the aortic stenosis I suspect is mild. Right ventricle is dilated. Left atrium is markedly dilated. ASSESSMENT: 1. Diastolic heart failure. 2. Mitral regurgitation, moderate to severe. 3. Chronic atrial fibrillation. 4. Intolerance to direct oral anticoagulants in the past with bleeding. 5. INR is still high at 2.3. PLAN: Check INR tomorrow. If it is still high, consider letting him go home and bring him back for outpatient cardiac catheterization including crossing the aortic valve, but need to stay on Lovenox until that time. We will re-discuss tomorrow morning. Job ID: [id number]
--- NOTE | 2018-12-16 12:14 | PDOC.CTH ---
Cardiology Progress Note - Subjective EP PROGRESS NOTE: 12/16/18 Patient seen and evaluated. No new cardiac concerns or complaints today. Denies heart racing, palpitations, chest pain/pressure, dizziness, or passing out. No stroke like symptoms.Having less SOB. + orthopnea - Objective Vital Signs Temp Pulse Resp BP Pulse Ox 12/16/18 11:42 94 20 110/78 93 L 12/16/18 07:11 97.6 F 81 16 117/84 97 12/16/18 03:55 97.5 F L 98 20 110/76 93 L Admit Weight 247 lb 1.6 oz Weight 241 lb 9 oz 12/15/18 12/16/18 12/17/18 06:59 06:59 06:59 Intake Total 320 480 Output Total 600 700 Balance -280 -220 - Physical Examination General/Neuro: alert & oriented x3, NAD Neck: carotid US brisk, no JVD present Lungs: CTA, other: (+ orthopnea) Heart: PMI normal, other: (irreg irreg) Abdomen: NT/ND, soft - Telemetry Telemetry Rhythm: AF 90-110 - Labs Result Diagrams: 12/12/18 04:50 12/16/18 04:44 Troponin/CKMB CK-MB (CK-2) 2.3 ng/mL (0-6.6) 12/11/18 11:50 Troponin I 0.020 ng/mL (< 0.028) 12/11/18 17:57 - Assessment/Plan IMPRESSION: 1. Chronic atrial fibrillation with previously attempted cardioversion, approximately 3 or 4 years ago, poor rate control. - Dig level 1.58 - increased coreg 6.25mg from BID to TID. BP slightly low with continued lasix which will limit aggressive rate control with BB or CCB 2. Nonsustained ventricular tachycardia. -optimize BB therapy with Coreg for now and monitor 3. History of preserved left ventricular ejection fraction by echocardiogram 5 months ago at 45% by nuclear stress test. 4. Acute on chronic congestive heart failure with exacerbation. -continue aggressive lasix for fluid management 5. Moderate to severe mitral regurgitation. -per cardiology -if sx required we would also recommend he undergo Maze and left atrial appendage closure procedure simultaneously. 6. Moderate to severe left atrial dilation. 7. Elevated CHADS-VASc score of 3 -on the basis of hypertension, heart failure, and advancing age. -Oral anticoagulation is indicated. He is currently therapeutic on warfarin and tolerating this well. - History of gastrointestinal bleed on Xarelto and Eliquis Continue AC (warfarin vs temp lovenox) and rate control for AF. Discussed valve with Dr Shaikh. Plan for heart cath to evaluate valve (possibly IP or OP). Recommend MAZE and ESTEPHANIE closure at time of valve surgery if feasible.
--- NOTE | 2018-12-16 14:02 | PDOC.PN ---
- Subjective Encounter Start Date: 12/16/18 Encounter Start Time: 11:00 Subjective: no sob or palp or chest pain -: at bedside - Objective MAR Reviewed: Yes Vital Signs & Weight: Vital Signs (12 hours) Temp Pulse Resp BP Pulse Ox 12/16/18 11:42 94 20 110/78 93 L 12/16/18 07:11 97.6 F 81 16 117/84 97 12/16/18 03:55 97.5 F L 98 20 110/76 93 L Weight Admit Weight 251 lb 8 oz Weight 241 lb 9 oz I&O: 12/15/18 12/16/18 12/17/18 06:59 06:59 06:59 Intake Total 320 480 Output Total 600 700 Balance -280 -220 Result Diagrams: 12/12/18 04:50 12/16/18 04:44 Phys Exam - Physical Examination HEENT: PERRLA, moist MMs Neck: no JVD, supple Respiratory: no wheezing, no rales Cardiovascular: no significant murmur, irregular Gastrointestinal: soft, non-tender, positive bowel sounds Musculoskeletal: pulses present, edema present Neurological: non-focal, moves all 4 limbs Psychiatric: normal affect, A&O x 3 Dx/Plan (1) Acute on chronic diastolic ACC/AHA stage C congestive heart failure Code(s): I50.33 - ACUTE ON CHRONIC DIASTOLIC (CONGESTIVE) HEART FAILURE Status : Acute (2) Atrial fibrillation, chronic Code(s): I48.2 - CHRONIC ATRIAL FIBRILLATION Status: Chronic Comment: with rvr off and on. (3) CKD (chronic kidney disease) stage 3, GFR 30-59 ml/min Code(s): N18.3 - CHRONIC KIDNEY DISEASE, STAGE 3 (MODERATE) Status: Chronic (4) Dyslipidemia Code(s): E78.5 - HYPERLIPIDEMIA, UNSPECIFIED Status: Chronic (5) Hypertension Code(s): I10 - ESSENTIAL (PRIMARY) HYPERTENSION Status: Chronic Qualifiers: (6) Mitral valve regurgitation Status: Chronic Qualifiers: Cardiac valve disease etiology: nonrheumatic Qualified Code(s): I34.0 - Nonrheumatic mitral (valve) insufficiency - Plan hemostable, diuresing well -: cath when inr is <1.7, off coumadin from friday -: continue dig, lipitor, lasix, cozaar -: renal function is holding up -: is amb in hallway, d/w and pt at bedside * . Review of Systems - Medications/Allergies Allergies/Adverse Reactions: Allergies Allergy/AdvReac Type Severity Reaction Status Date / Time No Known Drug Allergies Allergy Verified 07/29/18 00:58 Medications: Current Medications Acetaminophen (Tylenol) 650 mg PO Q4H PRN PRN Reason: Headache/Fever/Mild Pain (1-3) Hydrocodone Bitart/Acetaminophen ([place] 5/325) 1 tab PO Q4H PRN PRN Reason: Moderate Pain (4-6) Artificial Tears (Tears Naturale) 2 drop EA EYE PRN PRN PRN Reason: Dry Eyes Atorvastatin Calcium (Lipitor) 40 mg PO DAILY [facility] Last Admin: 12/16/18 08:23 Dose: 40 mg Bisacodyl (Dulcolax) 10 mg PO DAILYPRN PRN PRN Reason: Constipation Bisacodyl (Dulcolax) 10 mg [place] DAILYPRN PRN PRN Reason: Constipation Calcitriol (Rocaltrol) 0.25 mcg PO Q2D@0900 [facility] Last Admin: 12/15/18 08:37 Dose: 0.25 mcg Calcium Carbonate (Tums) 1,000 mg PO Q4H PRN PRN Reason: Heartburn or Indigestion Last Admin: 12/15/18 19:32 Dose: 1,000 mg Carvedilol (Coreg) 12.5 mg PO BID-[facility] Digoxin (Lanoxin) 0.125 mg PO DAILY [facility] Last Admin: 12/16/18 08:23 Dose: 0.125 mg Furosemide (Lasix) 40 mg SLOW IVP 0600,1400 [facility] Last Admin: 12/16/18 13:05 Dose: 40 mg Guaifenesin (Robitussin Sf) 200 mg PO Q4H PRN PRN Reason: Cough Hydralazine HCl (Apresoline) 10 mg SLOW IVP Q4H PRN PRN Reason: SBP > 180 and HR < 70 Loperamide HCl (Imodium) 2 mg PO PRN PRN PRN Reason: Diarrhea/Loose Stools Loratadine (Claritin) 10 mg PO DAILYPRN PRN PRN Reason: Sinus Symptoms Losartan Potassium (Cozaar) 25 mg PO BID [facility] Last Admin: 12/16/18 08:23 Dose: 25 mg Mineral Oil/White Petrolatum (Eucerin Cream) 0 gm TOP BIDPRN PRN PRN Reason: Dry Skin Miscellaneous Medication (Pharmacy To Dose) 1 each PO PRN PRN PRN Reason: . Ondansetron HCl (Zofran Odt) 4 mg PO Q6H PRN PRN Reason: Nausea/Vomiting Last Admin: 12/15/18 11:08 Dose: 4 mg Ondansetron HCl (Zofran) 4 mg IVP Q6H PRN PRN Reason: Nausea/Vomiting Potassium Chloride (Klor-Con 10) 10 meq PO DAILY [facility] Last Admin: 12/16/18 08:23 Dose: 10 meq Sodium Chloride ([place] Nasal [place] 0.65%) 0 ml EA NARE QIDPRN PRN PRN Reason: Nasal Congestion Sodium Chloride (Flush - Normal Saline) 10 ml IVF Q12HR [facility] Sodium Chloride (Flush - Normal Saline) 10 ml IVF PRN PRN PRN Reason: Saline Flush Throat Lozenges (Cepastat Lozenges) 1 vonda PO Q2H PRN PRN Reason: Sore Throat Zolpidem Tartrate (Ambien) 5 mg PO HSPRN PRN PRN Reason: Insomnia
[2018-12-16] MEDS: Ondansetron ODT 4 MG TAB PO PRN (15:37)
[2018-12-16] MEDS: Calcium Carbonate 500 MG ChewTAB PO PRN (21:32)
[2018-12-17] MEDS: Ondansetron ODT 4 MG TAB PO PRN ×2 (03:37→21:19)
[2018-12-17] MEDS: Furosemide 40 MG/4 ML VIAL SLOW IVP SCH (05:19)
[2018-12-17 05:49] LABS: INR-International Normal Ratio 2.1; Prothrombin Time 23.3 SEC (12.0-14.7)
[2018-12-17 05:50] LABS: PTT 39.1 SEC (22.9-36.1)
[2018-12-17 06:12] LABS: Anion Gap 17 mmol/L (10-20); BUN (Urea Nitrogen) 27 mg/dL (8.4-25.7); Calc. Creatinine Clearance 67 mL/min (70-130); Calcium 9.5 mg/dL (7.8-10.44); Carbon Dioxide 23 mmol/L (23-31); Chloride 106 mmol/L (98-107); Estimated GFR-MDRD 42; Glucose 108 mg/dL (80-115); Potassium 3.8 mmol/L (3.5-5.1); Sodium 142 mmol/L (136-145)
[2018-12-17] MEDS ORDERED: Furosemide 20 MG TAB PO SCH (09:00)
[2018-12-17] MEDS ORDERED: Enoxaparin Sodium 100 MG/ML SYRINGE SC SCH ×3 (09:41→21:00)
[2018-12-17] MEDS: Carvedilol 6.25 MG TAB PO SCH ×2 (10:08→17:51)
[2018-12-17] MEDS: Atorvastatin Calcium 40 MG TAB PO SCH (10:09)
[2018-12-17] MEDS: Potassium Chloride 10 MEQ TAB PO SCH (10:09)
[2018-12-17] MEDS: Calcitriol 0.25 MCG CAP PO SCH (10:09)
[2018-12-17] MEDS: Losartan 25 MG TAB PO SCH (10:13)
[2018-12-17] MEDS: Digoxin 0.125 MG TAB PO SCH (10:13)
--- NOTE | 2018-12-17 10:29 | PRG ---
DATE OF SERVICE: 12/17/2018 SUBJECTIVE: Mr. You had drop in blood pressure last night down to 80/60. He felt very short of breath when his blood pressure got that low. OBJECTIVE: VITAL SIGNS: He says he is feeling better this morning, but his pressure is still low at 88/68. Pulse is in the 60s, it is atrial fibrillation. LUNGS: Clear. CARDIAC: Irregularly irregular. ABDOMEN: Soft and nontender. EXTREMITIES: Still moderate edema. ASSESSMENT: 1. Congestive heart failure, now predominantly diastolic. 2. Renal failure, stage 3. Creatinine 1.62. 3. Mitral regurgitation. 4. Aortic stenosis, which I think is likely to be mild. 5. INR still therapeutic at 2.1. PLAN: 1. Stop digoxin. 2. Hold diuretics this morning. 3. Probably go home tomorrow on Lovenox to come in for catheterization next week. I would like to see INR closer to 1.5 for the cardiac catheterization. Tentatively, plan on going home tomorrow and coming back for catheterization next week. Job ID: [id number]
--- NOTE | 2018-12-17 12:32 | PDOC.PN ---
- Subjective Encounter Start Date: 12/17/18 Encounter Start Time: 09:00 Subjective: no sob or dizziness, had low BP overnight -: no chest pain or palp now - Objective MAR Reviewed: Yes Vital Signs & Weight: Vital Signs (12 hours) Temp Pulse Resp BP BP BP BP 12/17/18 10:13 110 H 12/17/18 10:08 88/68 L 12/17/18 07:35 97.5 F L 110 H 18 88/68 L 12/17/18 03:55 97.4 F L 82 18 80/62 L 96/60 12/17/18 02:34 Pulse Ox 12/17/18 10:13 12/17/18 10:08 12/17/18 07:35 97 12/17/18 03:55 94 L 12/17/18 02:34 95 Weight Admit Weight 251 lb 8 oz Weight 241 lb 11.2 oz I&O: 12/16/18 12/17/18 12/18/18 06:59 06:59 06:59 Intake Total 480 1080 Output Total 700 900 Balance -220 180 Result Diagrams: 12/12/18 04:50 12/17/18 04:43 Phys Exam - Physical Examination HEENT: PERRLA, moist MMs Neck: no JVD, supple Respiratory: no wheezing, no rales Cardiovascular: irregular murmur+ Gastrointestinal: soft, no distention, positive bowel sounds Musculoskeletal: pulses present, edema present Neurological: non-focal, moves all 4 limbs Psychiatric: normal affect, A&O x 3 Dx/Plan (1) Acute on chronic diastolic ACC/AHA stage C congestive heart failure Code(s): I50.33 - ACUTE ON CHRONIC DIASTOLIC (CONGESTIVE) HEART FAILURE Status : Acute (2) Atrial fibrillation, chronic Code(s): I48.2 - CHRONIC ATRIAL FIBRILLATION Status: Chronic Comment: with rvr off and on. (3) CKD (chronic kidney disease) stage 3, GFR 30-59 ml/min Code(s): N18.3 - CHRONIC KIDNEY DISEASE, STAGE 3 (MODERATE) Status: Chronic (4) Dyslipidemia Code(s): E78.5 - HYPERLIPIDEMIA, UNSPECIFIED Status: Chronic (5) Hypertension Code(s): I10 - ESSENTIAL (PRIMARY) HYPERTENSION Status: Chronic Qualifiers: (6) Mitral valve regurgitation Status: Chronic Qualifiers: Cardiac valve disease etiology: nonrheumatic Qualified Code(s): I34.0 - Nonrheumatic mitral (valve) insufficiency - Plan is on coreg, lipitor and lovenox full dose -: is off coumadin from friday -: likely outpt cath, home when BP improves -: off lasix, cozaar and dig * . Review of Systems - Medications/Allergies Allergies/Adverse Reactions: Allergies Allergy/AdvReac Type Severity Reaction Status Date / Time No Known Drug Allergies Allergy Verified 07/29/18 00:58 Medications: Current Medications Acetaminophen (Tylenol) 650 mg PO Q4H PRN PRN Reason: Headache/Fever/Mild Pain (1-3) Hydrocodone Bitart/Acetaminophen ([place] 5/325) 1 tab PO Q4H PRN PRN Reason: Moderate Pain (4-6) Artificial Tears (Tears Naturale) 2 drop EA EYE PRN PRN PRN Reason: Dry Eyes Atorvastatin Calcium (Lipitor) 40 mg PO DAILY [facility] Last Admin: 12/17/18 10:09 Dose: Not Given Bisacodyl (Dulcolax) 10 mg PO DAILYPRN PRN PRN Reason: Constipation Bisacodyl (Dulcolax) 10 mg [place] DAILYPRN PRN PRN Reason: Constipation Calcitriol (Rocaltrol) 0.25 mcg PO Q2D@0900 [facility] Last Admin: 12/17/18 10:09 Dose: Not Given Calcium Carbonate (Tums) 1,000 mg PO Q4H PRN PRN Reason: Heartburn or Indigestion Last Admin: 12/16/18 21:32 Dose: 1,000 mg Carvedilol (Coreg) 12.5 mg PO BID-[facility] Last Admin: 12/17/18 10:08 Dose: Not Given Enoxaparin Sodium (Lovenox) 100 mg SC 0900,2100 [facility] Guaifenesin (Robitussin Sf) 200 mg PO Q4H PRN PRN Reason: Cough Hydralazine HCl (Apresoline) 10 mg SLOW IVP Q4H PRN PRN Reason: SBP > 180 and HR < 70 Loperamide HCl (Imodium) 2 mg PO PRN PRN PRN Reason: Diarrhea/Loose Stools Loratadine (Claritin) 10 mg PO DAILYPRN PRN PRN Reason: Sinus Symptoms Mineral Oil/White Petrolatum (Eucerin Cream) 0 gm TOP BIDPRN PRN PRN Reason: Dry Skin Miscellaneous Medication (Pharmacy To Dose) 1 each PO PRN PRN PRN Reason: . Ondansetron HCl (Zofran Odt) 4 mg PO Q6H PRN PRN Reason: Nausea/Vomiting Last Admin: 12/17/18 03:37 Dose: 4 mg Ondansetron HCl (Zofran) 4 mg IVP Q6H PRN PRN Reason: Nausea/Vomiting Potassium Chloride (Klor-Con 10) 10 meq PO DAILY [facility] Last Admin: 12/17/18 10:09 Dose: Not Given Sodium Chloride ([place] Nasal [place] 0.65%) 0 ml EA NARE QIDPRN PRN PRN Reason: Nasal Congestion Sodium Chloride (Flush - Normal Saline) 10 ml IVF Q12HR [facility] Last Admin: 12/16/18 19:32 Dose: 10 ml Sodium Chloride (Flush - Normal Saline) 10 ml IVF PRN PRN PRN Reason: Saline Flush Throat Lozenges (Cepastat Lozenges) 1 vonda PO Q2H PRN PRN Reason: Sore Throat Zolpidem Tartrate (Ambien) 5 mg PO HSPRN PRN PRN Reason: Insomnia
--- NOTE | 2018-12-17 15:25 | PDOC.CTH ---
Cardiology Progress Note - Subjective EP PROGRESS NOTE: 12/17/18 Patient seen and evaluated. Had additional lasix yesterday. Had low BP and elevated HR over HS. Denies palpitations, chest pain/pressure, dizziness, or passing out. No stroke like symptoms. - Objective Vital Signs Temp Pulse Resp BP BP BP BP 12/17/18 12:30 98.3 F 90 18 100/70 12/17/18 10:13 110 H 12/17/18 10:08 88/68 L 12/17/18 07:35 97.5 F L 110 H 18 88/68 L 12/17/18 03:55 97.4 F L 82 18 80/62 L 96/60 Pulse Ox 12/17/18 12:30 98 12/17/18 10:13 12/17/18 10:08 12/17/18 07:35 97 12/17/18 03:55 94 L Admit Weight 251 lb 8 oz Weight 241 lb 11.2 oz 12/16/18 12/17/18 12/18/18 06:59 06:59 06:59 Intake Total 480 1080 Output Total 700 900 Balance -220 180 - Physical Examination General/Neuro: alert & oriented x3, NAD Neck: carotid US brisk, no JVD present Lungs: CTA, unlabored respirations Heart: PMI normal, other: (irreg irreg) Abdomen: NT/ND, soft - Telemetry Telemetry Rhythm: AF 90-130 - Labs Result Diagrams: 12/12/18 04:50 12/17/18 04:43 Troponin/CKMB CK-MB (CK-2) 2.3 ng/mL (0-6.6) 12/11/18 11:50 Troponin I 0.020 ng/mL (< 0.028) 12/11/18 17:57 - Assessment/Plan IMPRESSION: 1. Chronic atrial fibrillation with previously attempted cardioversion, approximately 3 or 4 years ago, poor rate control. - Dig level 1.58 - increased coreg 6.25mg from BID to TID. BP slightly low with continued lasix which will limit aggressive rate control with BB or CCB -worse rate control over HS likely r/t hypotension 2. Nonsustained ventricular tachycardia. -optimize BB therapy with Coreg for now and monitor 3. History of preserved left ventricular ejection fraction by echocardiogram 5 months ago at 45% by nuclear stress test. 4. Acute on chronic congestive heart failure with exacerbation. -continue lasix for fluid management 5. Moderate to severe mitral regurgitation. -per cardiology -if sx required we would also recommend he undergo Maze and left atrial appendage closure procedure simultaneously. 6. Moderate to severe left atrial dilation. 7. Elevated CHADS-VASc score of 3 - on the basis of hypertension, heart failure, and advancing age. - Oral anticoagulation is indicated. He is currently therapeutic on warfarin and tolerating this well. - History of gastrointestinal bleed on Xarelto and Eliquis Continue AC (warfarin vs temp lovenox) and rate control for AF. Discussed valve with Dr Shaikh. Plan for heart cath as OP next week to evaluate valve . Recommend MAZE and ESTEPHANIE closure at time of valve surgery if feasible. Difficult to rate control, continue digoxin and coreg. 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
[2018-12-17] MEDS: Calcium Carbonate 500 MG ChewTAB PO PRN (23:02)
[2018-12-18 05:55] LABS: INR-International Normal Ratio 1.9; Prothrombin Time 21.5 SEC (12.0-14.7)
[2018-12-18 06:13] LABS: Anion Gap 14 mmol/L (10-20); BUN (Urea Nitrogen) 29 mg/dL (8.4-25.7); Calc. Creatinine Clearance 63 mL/min (70-130); Carbon Dioxide 27 mmol/L (23-31); Chloride 104 mmol/L (98-107); Estimated GFR-MDRD 40; Glucose 100 mg/dL (80-115); Potassium 3.5 mmol/L (3.5-5.1); Sodium 141 mmol/L (136-145)
[2018-12-18] MEDS ORDERED: Potassium Chloride 20 MEQ TAB PO SCH (08:00)
--- NOTE | 2018-12-18 08:09 | PDOC.CTH ---
Cardiology Progress Note - Subjective EP PROGRESS NOTE: 12/18/18 Pt continues to be orthopnic. LE swelling improvred with diuresis. - ROS shortness of breath - Objective Vital Signs Temp Pulse Resp BP BP Pulse Ox 12/18/18 05:47 94 L 12/18/18 04:00 97.8 F 72 20 98 12/18/18 00:00 122/60 12/17/18 20:15 97.2 F L 92 18 86/56 L 120/60 94 L Admit Weight 251 lb 8 oz Weight 239 lb 8 oz 12/17/18 12/18/18 12/19/18 06:59 06:59 06:59 Intake Total 1080 420 Output Total 900 150 Balance 180 270 - Physical Examination General/Neuro: alert & oriented x3, NAD Neck: other: (JVD +) Lungs: other: (Coarse breath sounds) Heart: other: (Irregularly irregular) Abdomen: no HSM Extremities: + edema B (3+) - Telemetry Telemetry Rhythm: Afib with limited VR control. - Labs Result Diagrams: 12/12/18 04:50 12/18/18 05:22 Troponin/CKMB CK-MB (CK-2) 2.3 ng/mL (0-6.6) 12/11/18 11:50 Troponin I 0.020 ng/mL (< 0.028) 12/11/18 17:57 - Assessment/Plan IMPRESSION: 1. Chronic atrial fibrillation with previously attempted cardioversion, approximately 3 or 4 years ago, poor rate control. - Dig level 1.58 - increased coreg 6.25mg from BID to TID. BP slightly low with continued lasix which will limit aggressive rate control with BB or CCB -worse rate control over HS likely r/t hypotension - Could consider switching to metoprolol from coreg to achieve less BP lowering. 2. Nonsustained ventricular tachycardia. -optimize BB therapy with Coreg for now and monitor 3. History of preserved left ventricular ejection fraction by echocardiogram 5 months ago at 45% by nuclear stress test. 4. Acute on chronic congestive heart failure with exacerbation. -continue lasix for fluid management 5. Moderate to severe mitral regurgitation. -per cardiology -if sx required we would also recommend he undergo Maze and left atrial appendage closure procedure simultaneously. 6. Moderate to severe left atrial dilation. 7. Elevated CHADS-VASc score of 3 - on the basis of hypertension, heart failure, and advancing age. - Oral anticoagulation is indicated. He is currently therapeutic on warfarin and tolerating this well. - History of gastrointestinal bleed on Xarelto and Eliquis Continue AC (warfarin vs temp lovenox) and rate control for AF. Discussed valve with Dr Shaikh. Plan for heart cath as OP next week to evaluate valve . Recommend MAZE and ESTEPHANIE closure at time of valve surgery if feasible. Difficult to rate control, continue digoxin and coreg. 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
[2018-12-18] MEDS: Carvedilol 6.25 MG TAB PO SCH (08:39)
[2018-12-18] MEDS: Potassium Chloride 10 MEQ TAB PO SCH (08:39)
[2018-12-18] MEDS: Atorvastatin Calcium 40 MG TAB PO SCH (08:40)
[2018-12-18] MEDS: Enoxaparin Sodium 100 MG/ML SYRINGE SC SCH ×2 (08:40→20:20)
[2018-12-18] MEDS ORDERED: Phytonadione 10 MG/ML AMP PO SCH (08:45)
--- NOTE | 2018-12-18 09:15 | PRG ---
DATE OF SERVICE: 12/18/2018 SUBJECTIVE: Mr. You is feeling better today. His heart rate however is elevated. It is in the 90s supine, but when he sits up or goes to the bathroom, it goes to 120, atrial fibrillation which is chronic. OBJECTIVE: LUNGS: Clear. CARDIAC: Irregularly irregular. ABDOMEN: Soft and nontender. EXTREMITIES: Only mild edema now. LABORATORY DATA: GFR is 40, creatinine is 1.69, potassium is 3.5. ASSESSMENT: 1. Chronic atrial fibrillation. 2. Mitral regurgitation, which appears to be moderate to severe. 3. Congestive heart failure, diastolic with BNP 742. 4. Atrial fibrillation, rate is not well controlled. 5. Aortic stenosis, which appears to be mild. PLAN: Right and left heart catheterization on Friday to further evaluate options. Discussed risk of stroke, heart attack, iodine allergy, interference of blood supply to leg or kidney, stent thrombosis, stent restenosis. He understands and wished to proceed. We will give a VERY LOW dose of vitamin K to try to get his INR at least to 1.5 by Friday. We will avoid giving larger doses of vitamin K as it may take a long time to get him anticoagulated again and cannot take direct oral anticoagulants as they caused bleeding in the past. He understands risk of procedure, stroke, heart attack, iodine allergy, loss of blood supply to leg or kidney, stent thrombosis, stent restenosis, and wishes to proceed. Job ID: [id number]
--- NOTE | 2018-12-18 11:53 | PDOC.PN ---
- Subjective Encounter Start Date: 12/18/18 Encounter Start Time: 08:15 Subjective: no dizziness or chest pain -: is amb in room - Objective MAR Reviewed: Yes Vital Signs & Weight: Vital Signs (12 hours) Temp Pulse Resp BP BP BP Pulse Ox 12/18/18 08:39 98/58 L 12/18/18 07:45 97.3 F L 91 16 98/58 L 12/18/18 05:47 94 L 12/18/18 04:00 97.8 F 72 20 98 12/18/18 00:00 122/60 Weight Admit Weight 251 lb 8 oz Weight 239 lb 8 oz I&O: 12/17/18 12/18/18 12/19/18 06:59 06:59 06:59 Intake Total 1080 420 Output Total 900 150 Balance 180 270 Result Diagrams: 12/12/18 04:50 12/18/18 05:22 Phys Exam - Physical Examination HEENT: PERRLA, moist MMs Neck: no JVD, supple Respiratory: no wheezing, no rales Cardiovascular: no significant murmur, irregular Gastrointestinal: soft, non-tender, positive bowel sounds Musculoskeletal: pulses present, edema present Neurological: non-focal, moves all 4 limbs Psychiatric: normal affect, A&O x 3 Dx/Plan (1) Acute on chronic diastolic ACC/AHA stage C congestive heart failure Code(s): I50.33 - ACUTE ON CHRONIC DIASTOLIC (CONGESTIVE) HEART FAILURE Status : Acute (2) Atrial fibrillation, chronic Code(s): I48.2 - CHRONIC ATRIAL FIBRILLATION Status: Chronic Comment: with rvr off and on. (3) CKD (chronic kidney disease) stage 3, GFR 30-59 ml/min Code(s): N18.3 - CHRONIC KIDNEY DISEASE, STAGE 3 (MODERATE) Status: Chronic (4) Dyslipidemia Code(s): E78.5 - HYPERLIPIDEMIA, UNSPECIFIED Status: Chronic (5) Hypertension Code(s): I10 - ESSENTIAL (PRIMARY) HYPERTENSION Status: Chronic Qualifiers: (6) Mitral valve regurgitation Status: Chronic Qualifiers: Cardiac valve disease etiology: nonrheumatic Qualified Code(s): I34.0 - Nonrheumatic mitral (valve) insufficiency - Plan for cath on friday, is on lovenox as bridge -: inr still is 1.9, is off coumadin from friday for cath -: coreg, lipitor -: sbp has improved to around 100 now, is amb without dizziness -: hemostable * . Review of Systems - Medications/Allergies Allergies/Adverse Reactions: Allergies Allergy/AdvReac Type Severity Reaction Status Date / Time No Known Drug Allergies Allergy Verified 07/29/18 00:58 Medications: Current Medications Acetaminophen (Tylenol) 650 mg PO Q4H PRN PRN Reason: Headache/Fever/Mild Pain (1-3) Hydrocodone Bitart/Acetaminophen ([place] 5/325) 1 tab PO Q4H PRN PRN Reason: Moderate Pain (4-6) Artificial Tears (Tears Naturale) 2 drop EA EYE PRN PRN PRN Reason: Dry Eyes Atorvastatin Calcium (Lipitor) 40 mg PO DAILY [facility] Last Admin: 12/18/18 08:40 Dose: 40 mg Bisacodyl (Dulcolax) 10 mg PO DAILYPRN PRN PRN Reason: Constipation Last Admin: 12/17/18 21:13 Dose: 10 mg Bisacodyl (Dulcolax) 10 mg [place] DAILYPRN PRN PRN Reason: Constipation Calcitriol (Rocaltrol) 0.25 mcg PO Q2D@0900 [facility] Last Admin: 12/17/18 10:09 Dose: Not Given Calcium Carbonate (Tums) 1,000 mg PO Q4H PRN PRN Reason: Heartburn or Indigestion Last Admin: 12/17/18 23:02 Dose: 1,000 mg Carvedilol (Coreg) 12.5 mg PO BID-WM [facility] Last Admin: 12/18/18 08:39 Dose: 12.5 mg Diazepam (Valium) 5 mg PO [place] [facility] Stop: 12/21/18 06:01 Enoxaparin Sodium (Lovenox) 100 mg SC 0900,2100 [facility] Last Admin: 12/18/18 08:40 Dose: 100 mg Guaifenesin (Robitussin Sf) 200 mg PO Q4H PRN PRN Reason: Cough Hydralazine HCl (Apresoline) 10 mg SLOW IVP Q4H PRN PRN Reason: SBP > 180 and HR < 70 Sodium Chloride (Normal Saline 0.9%) 1,000 mls @ 60 mls/hr IV .[id number] [facility] Loperamide HCl (Imodium) 2 mg PO PRN PRN PRN Reason: Diarrhea/Loose Stools Loratadine (Claritin) 10 mg PO DAILYPRN PRN PRN Reason: Sinus Symptoms Mineral Oil/White Petrolatum (Eucerin Cream) 0 gm TOP BIDPRN PRN PRN Reason: Dry Skin Miscellaneous Information (Communication Order-Pharmacy) 0 each FS .CATH ON [facility] Miscellaneous Medication (Pharmacy To Dose) 1 each PO PRN PRN PRN Reason: . Ondansetron HCl (Zofran Odt) 4 mg PO Q6H PRN PRN Reason: Nausea/Vomiting Last Admin: 12/17/18 21:19 Dose: 4 mg Ondansetron HCl (Zofran) 4 mg IVP Q6H PRN PRN Reason: Nausea/Vomiting Potassium Chloride (Klor-Con 10) 10 meq PO DAILY [facility] Last Admin: 12/18/18 08:39 Dose: 10 meq Sodium Chloride ([place] Nasal [place] 0.65%) 0 ml EA NARE QIDPRN PRN PRN Reason: Nasal Congestion Sodium Chloride (Flush - Normal Saline) 10 ml IVF Q12HR [facility] Last Admin: 12/18/18 08:40 Dose: 10 ml Sodium Chloride (Flush - Normal Saline) 10 ml IVF PRN PRN PRN Reason: Saline Flush Throat Lozenges (Cepastat Lozenges) 1 vonda PO Q2H PRN PRN Reason: Sore Throat Zolpidem Tartrate (Ambien) 5 mg PO HSPRN PRN PRN Reason: Insomnia
[2018-12-18] MEDS: Ondansetron ODT 4 MG TAB PO PRN (12:47)
[2018-12-18 16:09] LABS: Hemoglobin 15.3 g/dL (14.0-18.0); Platelet Count 307 thou/uL (130-400)
[2018-12-18] MEDS: Metoprolol Tartrate 25 MG TAB PO SCH ×2 (20:20→21:42)
[2018-12-19 05:46] LABS: INR-International Normal Ratio 1.6; Prothrombin Time 19.3 SEC (12.0-14.7)
[2018-12-19 06:04] LABS: Anion Gap 14 mmol/L (10-20); BUN (Urea Nitrogen) 32 mg/dL (8.4-25.7); Calc. Creatinine Clearance 53 mL/min (70-130); Calcium 10.1 mg/dL (7.8-10.44); Carbon Dioxide 26 mmol/L (23-31); Chloride 103 mmol/L (98-107); Estimated GFR-MDRD 33; Glucose 104 mg/dL (80-115); Potassium 4.3 mmol/L (3.5-5.1); Sodium 139 mmol/L (136-145)
[2018-12-19] MEDS: Calcitriol 0.25 MCG CAP PO SCH (09:23)
[2018-12-19] MEDS: Enoxaparin Sodium 100 MG/ML SYRINGE SC SCH ×2 (09:23→20:01)
[2018-12-19] MEDS: Atorvastatin Calcium 40 MG TAB PO SCH (09:23)
[2018-12-19] MEDS: Metoprolol Tartrate 25 MG TAB PO SCH ×2 (09:23→20:01)
--- NOTE | 2018-12-19 11:23 | PDOC.PN ---
- Subjective Encounter Start Date: 12/19/18 Encounter Start Time: 11:22 Patient seen and examined, no new issues or complaints, all questions answered. - Objective Vital Signs & Weight: Vital Signs (12 hours) Temp Pulse Resp BP BP Pulse Ox 12/19/18 09:20 98.0 F 88 18 111/77 95 12/19/18 03:57 97.7 F 121 H 18 135/78 95 12/18/18 23:51 98.2 F 125 H 16 106/53 L 98 Weight Admit Weight 251 lb 8 oz Weight 242 lb 14.4 oz I&O: 12/18/18 12/19/18 12/20/18 06:59 06:59 06:59 Intake Total 420 780 Output Total 150 100 100 Balance 270 680 -100 Result Diagrams: 12/18/18 16:03 12/19/18 04:30 Phys Exam - Physical Examination Constitutional: NAD HEENT: PERRLA, moist MMs, sclera anicteric Neck: no nodes, no JVD Respiratory: no wheezing, no rales, no rhonchi Cardiovascular: no significant murmur, no rub, irregular Gastrointestinal: soft, non-tender, no distention Musculoskeletal: no edema, pulses present Dx/Plan (1) Acute on chronic diastolic ACC/AHA stage C congestive heart failure Code(s): I50.33 - ACUTE ON CHRONIC DIASTOLIC (CONGESTIVE) HEART FAILURE Status : Acute (2) Atrial fibrillation, chronic Code(s): I48.2 - CHRONIC ATRIAL FIBRILLATION Status: Chronic Comment: with rvr off and on. (3) CKD (chronic kidney disease) stage 3, GFR 30-59 ml/min Code(s): N18.3 - CHRONIC KIDNEY DISEASE, STAGE 3 (MODERATE) Status: Chronic (4) Dyslipidemia Code(s): E78.5 - HYPERLIPIDEMIA, UNSPECIFIED Status: Chronic (5) Hypertension Code(s): I10 - ESSENTIAL (PRIMARY) HYPERTENSION Status: Chronic Qualifiers: - Plan * Cath for 12/21/2018 * cont current medications * INR target to be 1.5 for friday, cardio following and managing * labs in AM * case and plan d/w patient at length, he understood and agreed with this plan
[2018-12-19] MEDS: Ondansetron ODT 4 MG TAB PO PRN ×2 (11:51→20:02)
--- NOTE | 2018-12-19 15:35 | PDOC.CTH ---
Cardiology Progress Note - Subjective No new issues. No chest pain, tightness, pressure. - Objective Vital Signs Temp Pulse Resp BP BP Pulse Ox 12/19/18 11:45 97.5 F L 81 18 98/68 93 L 12/19/18 09:20 98.0 F 88 18 111/77 95 12/19/18 03:57 97.7 F 121 H 18 135/78 95 Admit Weight 251 lb 8 oz Weight 242 lb 14.4 oz 12/18/18 12/19/18 12/20/18 06:59 06:59 06:59 Intake Total 420 780 180 Output Total 150 100 100 Balance 270 680 80 - Physical Examination General/Neuro: alert & oriented x3, NAD Neck: no JVD present Lungs: unlabored respirations Heart: other: (Irreg irreg.) Abdomen: NT/ND Extremities: + edema B (2+) - Telemetry Telemetry Rhythm: Afib HR 100's. - Labs Result Diagrams: 12/18/18 16:03 12/19/18 04:30 Troponin/CKMB CK-MB (CK-2) 2.3 ng/mL (0-6.6) 12/11/18 11:50 Troponin I 0.020 ng/mL (< 0.028) 12/11/18 17:57 - Assessment/Plan 1. Chronic afib 2. Moderate to severe MR 3. cute on chronic diastolic CHF 4. Mild aortic valve stenosis. 5. ANI on CKD PLAN: - Creatinine bumped to 2.0, will give IV fluids. - R+L friday for full evaluation and weigh options per Dr. Shaikh.
[2018-12-19] MEDS ORDERED: Sodium Chloride 0.9% 1,000 ML IV SCH (15:45)
[2018-12-20 06:58] LABS: INR-International Normal Ratio 1.3; Prothrombin Time 16.7 SEC (12.0-14.7)
[2018-12-20 07:14] LABS: Anion Gap 18 mmol/L (10-20); BUN (Urea Nitrogen) 34 mg/dL (8.4-25.7); Calc. Creatinine Clearance 53 mL/min (70-130); Calcium 9.7 mg/dL (7.8-10.44); Carbon Dioxide 19 mmol/L (23-31); Chloride 105 mmol/L (98-107); Estimated GFR-MDRD 32; Glucose 94 mg/dL (80-115); Potassium 4.4 mmol/L (3.5-5.1); Sodium 138 mmol/L (136-145)
[2018-12-20] MEDS: Metoprolol Tartrate 25 MG TAB PO SCH ×2 (09:17→20:42)
[2018-12-20] MEDS: Atorvastatin Calcium 40 MG TAB PO SCH (09:17)
[2018-12-20] MEDS: Enoxaparin Sodium 100 MG/ML SYRINGE SC SCH (09:17)
--- NOTE | 2018-12-20 11:01 | PDOC.PN ---
- Subjective Encounter Start Date: 12/20/18 Encounter Start Time: 11:00 Patient seen and examined, no new issues or complaints, all questions answered. - Objective Vital Signs & Weight: Vital Signs (12 hours) Temp Pulse Resp BP BP Pulse Ox 12/20/18 07:19 97.4 F L 105 H 17 103/62 94 L 12/20/18 03:05 97.5 F L 86 20 115/78 96 12/19/18 23:10 91 129/73 Weight Admit Weight 251 lb 8 oz Weight 245 lb 14.4 oz I&O: 12/19/18 12/20/18 12/21/18 06:59 06:59 06:59 Intake Total 780 1020 Output Total 100 275 Balance 680 745 Result Diagrams: 12/18/18 16:03 12/20/18 06:15 Phys Exam - Physical Examination Constitutional: NAD HEENT: PERRLA, moist MMs, sclera anicteric Neck: no nodes, no JVD, supple Respiratory: no wheezing, no rales, no rhonchi Cardiovascular: RRR, no significant murmur, no rub Gastrointestinal: soft, non-tender, no distention Musculoskeletal: no edema, pulses present Dx/Plan (1) Acute on chronic diastolic ACC/AHA stage C congestive heart failure Code(s): I50.33 - ACUTE ON CHRONIC DIASTOLIC (CONGESTIVE) HEART FAILURE Status : Acute (2) Atrial fibrillation, chronic Code(s): I48.2 - CHRONIC ATRIAL FIBRILLATION Status: Chronic Comment: with rvr off and on. (3) CKD (chronic kidney disease) stage 3, GFR 30-59 ml/min Code(s): N18.3 - CHRONIC KIDNEY DISEASE, STAGE 3 (MODERATE) Status: Chronic (4) Dyslipidemia Code(s): E78.5 - HYPERLIPIDEMIA, UNSPECIFIED Status: Chronic (5) Hypertension Code(s): I10 - ESSENTIAL (PRIMARY) HYPERTENSION Status: Chronic Qualifiers: - Plan * cardiac cath for tomorrow * no changes in plan of care
[2018-12-20] MEDS: Ondansetron ODT 4 MG TAB PO PRN (11:52)
[2018-12-20] MEDS: Sodium Chloride 0.9% 1,000 ML IV SCH (15:07)
--- NOTE | 2018-12-20 16:33 | PDOC.CTH ---
Cardiology Progress Note - Subjective No new issues. - Objective Vital Signs Temp Pulse Resp BP BP Pulse Ox 12/20/18 16:23 98.0 F 101 H 17 110/80 98 12/20/18 11:54 94.5 F L 98 19 111/87 97 12/20/18 07:19 97.4 F L 105 H 17 103/62 94 L Admit Weight 251 lb 8 oz Weight 245 lb 14.4 oz 12/19/18 12/20/18 12/21/18 06:59 06:59 06:59 Intake Total 780 1020 Output Total 100 275 Balance 680 745 - Physical Examination General/Neuro: alert & oriented x3, NAD Neck: no JVD present Lungs: CTA, unlabored respirations Heart: other: (Irreg irreg.) Abdomen: NT/ND Extremities: + edema B (2+) - Telemetry Telemetry Rhythm: Afib HR 90's to 100's. - Labs Result Diagrams: 12/18/18 16:03 12/20/18 06:15 Troponin/CKMB CK-MB (CK-2) 2.3 ng/mL (0-6.6) 12/11/18 11:50 Troponin I 0.020 ng/mL (< 0.028) 12/11/18 17:57 - Assessment/Plan 1. Chronic afib 2. Moderate to severe MR 3. Acute on chronic diastolic CHF 4. Aortic valve stenosis. 5. ANI on CKD PLAN: - Creatinine bumped to 2.08 today despite IV fluids, likely cardiorenal. Will try to diurese now. - R+L HC by Dr. Shaikh, currently his creatinine may be an issue. Will see how he fares with diuresis.
[2018-12-20] MEDS ORDERED: Furosemide 40 MG/4 ML VIAL SLOW IVP SCH (16:45)
[2018-12-20 17:21] LABS: Hemoglobin 14.9 g/dL (14.0-18.0); Platelet Count 199 thou/uL (130-400)
[2018-12-21 03:57] LABS: INR-International Normal Ratio 1.3; Prothrombin Time 15.9 SEC (12.0-14.7)
[2018-12-21 04:10] LABS: Anion Gap 18 mmol/L (10-20); BUN (Urea Nitrogen) 37 mg/dL (8.4-25.7); Calc. Creatinine Clearance 48 mL/min (70-130); Calcium 9.7 mg/dL (7.8-10.44); Carbon Dioxide 21 mmol/L (23-31); Chloride 107 mmol/L (98-107); Estimated GFR-MDRD 29; Glucose 99 mg/dL (80-115); Potassium 4.3 mmol/L (3.5-5.1); Sodium 142 mmol/L (136-145)
[2018-12-21] MEDS: Atorvastatin Calcium 40 MG TAB PO SCH (05:41)
[2018-12-21] MEDS: Metoprolol Tartrate 25 MG TAB PO SCH ×2 (05:41→20:06)
[2018-12-21] MEDS: Calcitriol 0.25 MCG CAP PO SCH (05:41)
[2018-12-21] MEDS: Sodium Chloride 0.9% 1,000 ML IV SCH (05:42)
[2018-12-21] MEDS ORDERED: Diazepam 5 MG TAB PO SCH (06:00)
[2018-12-21] MEDS ORDERED: Enoxaparin Sodium 40 MG/0.4 ML SYRINGE SC SCH (09:15)
--- NOTE | 2018-12-21 09:50 | PRG ---
DATE OF SERVICE: 12/21/2018 SUBJECTIVE: Mr. You is not having chest pain or pressure. He is sitting up in the chair with his feet down. We asked him to try to minimize that position as he needs to mobilize the extravascular fluid to help with mobilization of his edema. OBJECTIVE: VITAL SIGNS: His blood pressure 110/78, pulse is 98, irregular. LUNGS: Clear. CARDIAC: Irregularly irregular. ABDOMEN: Soft, nontender. EXTREMITIES: There is moderate edema. ASSESSMENT: 1. Congestive heart failure diastolic. 2. Mitral regurgitation. 3. Aortic stenosis. 4. Renal failure stage 4. Estimated GFR slightly low at 29. PLAN: 1. Continue intravenous fluid. 2. We will give additional dose of enoxaparin. 3. Hopefully can proceed to cardiac catheterization tomorrow based on kidney function. We will need to recheck again tomorrow. Job ID: [id number]
[2018-12-21] MEDS ORDERED: Enoxaparin Sodium 100 MG/ML SYRINGE SC SCH (12:00)
[2018-12-21] MEDS: Lidocaine 5% Patch TD SCH (12:16)
--- NOTE | 2018-12-21 13:01 | RAD ---
EXAM: Two views chest PROVIDED CLINICAL HISTORY: Pleural effusion/edema COMPARISON: 05/23/2019 FINDINGS: Cardiac silhouette is enlarged. Pulmonary vasculature is within normal limits. There is a moderate le ft pleural effusion and atelectasis with small right pleural effusion present. No consolidation is seen. Degenerative changes are seen in the spine. No significant interval change from prior study giv en differences in technique IMPRESSION: 1. Moderate left and small right pleural effusions with associated passive atelectasis..
[2018-12-21 14:15] VITALS: BMI 29.2
[2018-12-21] MEDS ORDERED: Sodium Chloride 0.9% 1,000 ML IV SCH (14:41)
--- NOTE | 2018-12-21 16:06 | PDOC.CTH ---
Cardiology Progress Note - Subjective EP PROGRESS NOTE: 12/19/18 Pt orthopnia has improved. LE swelling still persists. Diuretics on hold hence worsened renal Fx. - ROS shortness of breath - Objective Vital Signs Temp Pulse Resp BP Pulse Ox 12/21/18 15:15 97.9 F 110 H 18 105/58 L 96 12/21/18 12:19 81 17 100/75 92 L 12/21/18 08:46 97.6 F 91 17 110/78 98 Admit Weight 251 lb 8 oz Weight 245 lb 14.4 oz 12/20/18 12/21/18 12/22/18 06:59 06:59 06:59 Intake Total 1020 1280 Output Total 275 400 Balance 745 880 - Physical Examination General/Neuro: alert & oriented x3, NAD Neck: no JVD present, other: (J) Lungs: CTA Heart: other: ([place] Heart sounds) Abdomen: no HSM - Telemetry Telemetry Rhythm: atrial fib with VR 100-110 - Labs Result Diagrams: 12/20/18 16:51 12/21/18 03:44 Troponin/CKMB CK-MB (CK-2) 2.3 ng/mL (0-6.6) 12/11/18 11:50 Troponin I 0.020 ng/mL (< 0.028) 12/11/18 17:57 - Assessment/Plan IMPRESSION: 1. Chronic atrial fibrillation with previously attempted cardioversion, approximately 3 or 4 years ago, poor rate control. - increased Metoprolol from 25mg from BID to TID. BP slightly low with continued lasix which will limit aggressive rate control with BB or CCB -worse rate control over HS likely r/t hypotension 2. Nonsustained ventricular tachycardia. -optimize BB therapy with Coreg for now and monitor 3. History of preserved left ventricular ejection fraction by echocardiogram 5 months ago at 45% by nuclear stress test. 4. Acute on chronic congestive heart failure with exacerbation. -continue lasix for fluid management 5. Moderate to severe mitral regurgitation. -per cardiology -if sx required we would also recommend he undergo Maze and left atrial appendage closure procedure simultaneously. 6. Moderate to severe left atrial dilation. 7. Elevated CHADS-VASc score of 3 - on the basis of hypertension, heart failure, and advancing age. - Oral anticoagulation is indicated. He is currently therapeutic on warfarin and tolerating this well. - History of gastrointestinal bleed on Xarelto and Eliquis Continue AC (warfarin vs temp lovenox) and rate control for AF. Discussed valve issues with Dr Shaikh. Plan for heart cath as OP next week to evaluate mitral valve . Recommend MAZE and ESTEPHANIE closure at time of valve surgery if feasible. Difficult to rate control, continue digoxin and coreg. 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
--- NOTE | 2018-12-21 16:19 | PDOC.PN ---
- Subjective Encounter Start Date: 12/21/18 Encounter Start Time: 16:17 Subjective: reports that he can't even sit back in recliner w/o getting SOB -: can't lie flat in bed at all but notices that is not new -: feels leg swelling is better.no CP - Objective MAR Reviewed: Yes Vital Signs & Weight: Vital Signs (12 hours) Temp Pulse Resp BP Pulse Ox 12/21/18 15:15 97.9 F 110 H 18 105/58 L 96 12/21/18 12:19 81 17 100/75 92 L 12/21/18 08:46 97.6 F 91 17 110/78 98 Weight Admit Weight 251 lb 8 oz Weight 245 lb 14.4 oz I&O: 12/20/18 12/21/18 12/22/18 06:59 06:59 06:59 Intake Total 1020 1280 Output Total 275 400 Balance 745 880 Result Diagrams: 12/20/18 16:51 12/21/18 03:44 Additional Labs: Laboratory Tests 12/11/18 12/13/18 12/18/18 11:50 05:12 05:22 Creatinine 1.66 H 1.67 H 1.69 H 12/19/18 12/20/18 12/21/18 04:30 16:51 03:44 Creatinine 2.04 H 2.17 H 2.28 H Radiology Reviewed by me: Yes (CXR-moderate Left pl effusion) Phys Exam - Physical Examination sitting hunched forward at edge of chair HEENT: PERRLA, moist MMs, sclera anicteric, oral pharynx no lesions Neck: no nodes, no JVD, supple, full ROM Respiratory: no wheezing, no rales, no rhonchi poor BS at bases b/l Cardiovascular: irregular Gastrointestinal: soft, non-tender, no distention, positive bowel sounds Musculoskeletal: pulses present, edema present (+3 b/l) Neurological: non-focal, normal sensation, moves all 4 limbs Psychiatric: normal affect, A&O x 3 Skin: no rash Dx/Plan (1) Acute on chronic diastolic ACC/AHA stage C congestive heart failure Code(s): I50.33 - ACUTE ON CHRONIC DIASTOLIC (CONGESTIVE) HEART FAILURE Status : Acute Comment: lasix on hold due to ANI (2) ANI (acute kidney injury) Code(s): N17.9 - ACUTE KIDNEY FAILURE, UNSPECIFIED Status: Acute Comment: gentle IVF.hold lasix. Check in am (3) Atrial fibrillation, chronic Code(s): I48.2 - CHRONIC ATRIAL FIBRILLATION Status: Chronic Comment: with rvr off and on.Couamdin on hold due to possible Cath in house. 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 Status: Chronic (6) Dyslipidemia Code(s): E78.5 - HYPERLIPIDEMIA, UNSPECIFIED Status: Chronic (7) Hypertension Code(s): I10 - ESSENTIAL (PRIMARY) HYPERTENSION Status: Chronic Qualifiers: (8) Mitral valve regurgitation Status: Chronic Qualifiers: Cardiac valve disease etiology: nonrheumatic Qualified Code(s): I34.0 - Nonrheumatic mitral (valve) insufficiency - Plan plan discussed w/ family, PT/OT, incentive spirometry, DVT proph w/SCDs CXR shows Pleural effusion w Possible cardiorenal syndrome & poor lasix -: response.discussed w Cardiology.will request PCCM recs ?thoracentesis -: on gentle IVF. recheck Cr in am -: Cath on hold for now.medical managment. -: discussed w at bedside.am labs * . Review of Systems - Review of Systems Constitutional: weakness, malaise. negative: fever, chills, sweats, other ENT: negative: Ear Pain, Ear Discharge, Nose Pain, Nose Discharge, Nose Congestion, Mouth Pain, Mouth Swelling, Throat Pain, Throat Swelling, Other Respiratory: Shortness of Breath, SOB with Excertion. negative: Cough, Dry, Hemoptysis, Pleuritic Pain, Sputum, Wheezing Cardiovascular: orthopnea, edema. negative: chest pain, palpitations, paroxysmal nocturnal dyspnea, light headedness, other Gastrointestinal: negative: Nausea, Vomiting, Abdominal Pain, Diarrhea, Constipation, Melena, Hematochezia, Other Genitourinary: negative: Dysuria, Frequency, Incontinence, Hematuria, Retention , Other Musculoskeletal: negative: Neck Pain, Shoulder Pain, Arm Pain, Back Pain, Hand Pain, Leg Pain, Foot Pain, Other Neurological: negative: Weakness, Numbness, Incoordination, Change in Speech, Confusion, Seizures, Other - Medications/Allergies Allergies/Adverse Reactions: Allergies Allergy/AdvReac Type Severity Reaction Status Date / Time No Known Drug Allergies Allergy Verified 07/29/18 00:58 Medications: Current Medications Acetaminophen (Tylenol) 650 mg PO Q4H PRN PRN Reason: Headache/Fever/Mild Pain (1-3) Hydrocodone Bitart/Acetaminophen ([place] 5/325) 1 tab PO Q4H PRN PRN Reason: Moderate Pain (4-6) Artificial Tears (Tears Naturale) 2 drop EA EYE PRN PRN PRN Reason: Dry Eyes Atorvastatin Calcium (Lipitor) 40 mg PO DAILY [facility] Last Admin: 12/21/18 05:41 Dose: 40 mg Bisacodyl (Dulcolax) 10 mg PO DAILYPRN PRN PRN Reason: Constipation Last Admin: 12/17/18 21:13 Dose: 10 mg Bisacodyl (Dulcolax) 10 mg [place] DAILYPRN PRN PRN Reason: Constipation Calcitriol (Rocaltrol) 0.25 mcg PO Q2D@0900 [facility] Last Admin: 12/21/18 05:41 Dose: 0.25 mcg Calcium Carbonate (Tums) 1,000 mg PO Q4H PRN PRN Reason: Heartburn or Indigestion Last Admin: 12/17/18 23:02 Dose: 1,000 mg Guaifenesin (Robitussin Sf) 200 mg PO Q4H PRN PRN Reason: Cough Hydralazine HCl (Apresoline) 10 mg SLOW IVP Q4H PRN PRN Reason: SBP > 180 and HR < 70 Sodium Chloride (Normal Saline 0.9%) 1,000 mls @ 50 mls/hr IV .Q20H [facility] Lidocaine (Lidoderm 5% Patch) 1 patch TD 1300 [facility] Last Admin: 12/21/18 12:16 Dose: 1 patch Loperamide HCl (Imodium) 2 mg PO PRN PRN PRN Reason: Diarrhea/Loose Stools Loratadine (Claritin) 10 mg PO DAILYPRN PRN PRN Reason: Sinus Symptoms Metoprolol Tartrate (Lopressor) 25 mg PO TID [facility] Mineral Oil/White Petrolatum (Eucerin Cream) 0 gm TOP BIDPRN PRN PRN Reason: Dry Skin Miscellaneous Information (Communication Order-Pharmacy) 0 each FS .CATH ON [facility] Miscellaneous Medication (Lidocaine Patch Removal) 1 each TOP 0100 [facility] Ondansetron HCl (Zofran Odt) 4 mg PO Q6H PRN PRN Reason: Nausea/Vomiting Last Admin: 12/20/18 11:52 Dose: 4 mg Ondansetron HCl (Zofran) 4 mg IVP Q6H PRN PRN Reason: Nausea/Vomiting Sodium Chloride ([place] Nasal [place] 0.65%) 0 ml EA NARE QIDPRN PRN PRN Reason: Nasal Congestion Sodium Chloride (Flush - Normal Saline) 10 ml IVF Q12HR [facility] Last Admin: 12/21/18 05:41 Dose: 10 ml Sodium Chloride (Flush - Normal Saline) 10 ml IVF PRN PRN PRN Reason: Saline Flush Throat Lozenges (Cepastat Lozenges) 1 vonda PO Q2H PRN PRN Reason: Sore Throat Zolpidem Tartrate (Ambien) 5 mg PO HSPRN PRN PRN Reason: Insomnia
[2018-12-21 17:55] LABS: Pleural Fluid, Protein 1.6 g/dL
[2018-12-21 18:57] LABS: Body Fluid Source Pleural Fluid; Clarity Cloudy/Turbid (Clear); RBC Background Count 0.006; Tube # EDTA
[2018-12-21 18:58] LABS: RBC Count-Automated 15000 /cumm; WBC/NonHematic-Auto 477 /cumm
[2018-12-21 19:41] LABS: BF Segmented Neutrophils 39 %; Cell Count Non Hematic 30 %; Lymphocytes 30 %
[2018-12-21] MEDS ORDERED: Digoxin 0.5 MG/2 ML AMP SLOW IVP SCH (20:00)
--- NOTE | 2018-12-21 23:53 | CON ---
DATE OF CONSULTATION: 12/21/2018 SERVICE: Pulmonary Medicine. REASON FOR CONSULTATION: Pleural effusion. HISTORY OF PRESENT ILLNESS: The patient is a 68-year-old white male with past medical history significant for chronic atrial fibrillation, diastolic heart failure. He came into the hospital on December 11, 2018, with complaints of increasing dyspnea on exertion that was progressive over several weeks. He also had lower extremity swelling, bilateral pleural effusions, and pulmonary edema. He was diuresed aggressively. That being said, we had a hard time pulling off some fluid. The patient has a moderate-sized pleural effusion on the right side, which has been refractory to diuretic interventions. We want to perform a catheterization, the patient is unable to lie flat. As such, I was consulted during the fluid, so that we could move forward with a cardiac catheterization in the morning. He denies current shortness of breath, nausea, vomiting, or diarrhea. His appetite is actually improved and his lower extremity swelling has improved significantly. His only complaint at this point is persistent orthopnea. For the catheterization, Dr. Shaikh has initiated IV fluids to prevent additional renal injuries. PAST MEDICAL HISTORY: 1. Chronic diastolic heart failure. 2. Hypertension. 3. Atrial fibrillation. PAST SURGICAL HISTORY: Left knee surgery. SOCIAL HISTORY: Negative for alcohol, tobacco, or illicit drug use. 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 He has no exposure to chemicals, dust, asbestos, or tuberculosis that he recalls. FAMILY HISTORY: Noncontributory. ALLERGIES: NO KNOWN DRUG ALLERGIES. MEDICATIONS: List of the patient's inpatient medications were reviewed. No specific updates were made at this time. REVIEW OF SYSTEMS: General, head, ears, eyes, nose, throat, cardiovascular, respiratory, GI, , musculoskeletal, neurologic, and skin are negative except as mentioned in the HPI. PHYSICAL EXAMINATION: VITAL SIGNS: Afebrile, pulse 110, blood pressure 105/58, respirations 18, saturation 96%, currently on room air. GENERAL: The patient is awake and alert, in no apparent distress. LUNGS: Decent air entry. There is decreased air entry at the left base. No prolonged expiratory phase or wheezing is appreciated. HEART: Normal rate and regular. ABDOMEN: Soft, nontender, and nondistended. Bowel sounds are positive. MUSCULOSKELETAL: No cyanosis or clubbing. There is diffuse 2+ pitting edema, which is now limited to below the knees. NEUROLOGIC: Grossly nonfocal. LABORATORY DATA: Hemoglobin 14.9, INR 1.3. Creatinine 2.28, BUN 37, bicarb 21. Basic metabolic profile is otherwise unremarkable. Digoxin level is 1.28. IMAGING DATA: Chest x-ray on December 11 demonstrates bilateral pleural effusions, pulmonary vascular congestion. Chest x-ray dated December 21, 2018, demonstrates persistent effusion on the left. Slightly smaller than it was previously. The pulmonary vascular congestion is completely resolved. ASSESSMENT: 1. Acute on chronic diastolic heart failure. 2. Pleural effusion on the left. 3. Atrial fibrillation. 4. Acute kidney injury on chronic kidney disease III. DISCUSSION AND PLAN: I will do a thoracentesis. It will help characterize the fluid and hopefully allow the patient to lie flat. After this is performed, we will have him lie flat for about 30 to 45 minutes if he does well with this great. If he does not, we will repeat that maneuver on CPAP. If he require CPAP, we will need to be prepared to go down with CPAP tomorrow morning for his procedure. Pulmonary/Critical Care will continue to follow along for the time being. We will send this fluid for analysis. Hopefully, we will demonstrate a transudate or pseudo-exudate. 70 minutes have been devoted to this patient in various activities. I personally reviewed all imaging studies and laboratory data noted within this document. For fifty percent of this time, I was interacting with the patient at the bedside or coordinating care with the care team. For the remainder of the time I was immediately available to the patient in the hospital unit. This time was unbundled from the procedure. Job ID: [id number] [facility]
--- NOTE | 2018-12-21 23:53 | OP ---
DATE OF PROCEDURE: 12/21/2018 SERVICE: Pulmonary Medicine. PROCEDURE PERFORMED: Left-sided thoracentesis under ultrasound guidance. CONSENT: The risks and benefits were discussed with the patient at bedside in front of his next of kin. All questions were answered and alternative options explained. STAFF PHYSICIAN: Sathish Muniz MD MEDICATIONS USED: Lidocaine 1% without epinephrine, total quantity 8 mL. PREOPERATIVE DIAGNOSES: 1. Orthopnea. 2. Pleural effusion. POSTOPERATIVE DIAGNOSES: 1. Orthopnea. 2. Pleural effusion. DESCRIPTION OF PROCEDURE: Time-out was performed by the procedure team and patient. The patient was positively identified using name and date of . The procedure site was marked. Vital sign monitoring was accomplished by noninvasive hemodynamic monitoring, pulse oximetry, and telemetry. In the seated position, the left posterior hemithorax was examined by using ultrasound probe. The diaphragm and pleural fluid were easily identified. The skin was prepped and draped in the sterile fashion and anesthetized with 1% lidocaine without epinephrine. A finder needle was inserted in the pleural space with return of cloudy emmett fluid. A pleural drainage catheter was inserted in the same location. A total quantity of 1300 mL of pleural fluid was withdrawn by syringe pump technique. A sample was sent for analysis. Evacuation of fluid was terminated because we arrived at -22 cm of pleural fluid pressure. At that time, the fluid being removed became respirophasic. The intact catheter was withdrawn on exhalation and a sterile dressing was applied. The patient had stable vitals throughout the entire procedure. ESTIMATED BLOOD LOSS: Less than 2 mL. COMPLICATIONS: None. Job ID: [id number] [facility]
[2018-12-22] MEDS: Lidocaine Patch Removal 1 EACH TOP SCH (02:33)
[2018-12-22 05:18] LABS: Anion Gap 15 mmol/L (10-20); BUN (Urea Nitrogen) 33 mg/dL (8.4-25.7); Calc. Creatinine Clearance 58 mL/min (70-130); Calcium 9.2 mg/dL (7.8-10.44); Carbon Dioxide 22 mmol/L (23-31); Chloride 106 mmol/L (98-107); Estimated GFR-MDRD 35; Glucose 97 mg/dL (80-115); Potassium 3.8 mmol/L (3.5-5.1); Sodium 139 mmol/L (136-145)
[2018-12-22] MEDS ORDERED: Sodium Chloride 0.9% 1,000 ML IV SCH (06:00)
[2018-12-22] MEDS: Atorvastatin Calcium 40 MG TAB PO SCH (06:34)
[2018-12-22] MEDS: Metoprolol Tartrate 25 MG TAB PO SCH ×3 (06:34→20:06)
[2018-12-22] MEDS ORDERED: Acetaminophen/Codeine 30-300mg Tablet PO PRN ×2 (09:05)
[2018-12-22] MEDS ORDERED: Sodium Chloride 0.9% 200 ML IV PRN (09:05)
[2018-12-22] MEDS ORDERED: Nitroglycerin 0.4 MG TAB (25 Tab Bottle) SL PRN (09:05)
[2018-12-22] MEDS: Sodium Chloride 0.9% 1,000 ML IV SCH ×2 (09:31→15:09)
--- NOTE | 2018-12-22 10:31 | PDOC.CTH ---
Cardiology Progress Note - Subjective EP PROGRESS NOTE: 12/22/18 Pt orthopnea has improved after thoracentesis on 12/21. Had L/RHC this AM. - Objective Vital Signs Temp Pulse Resp BP Pulse Ox 12/22/18 07:29 99.4 F 84 16 101/66 98 12/22/18 03:48 97.3 F L 85 20 125/69 93 L Admit Weight 251 lb 8 oz Weight 243 lb 4 oz 12/21/18 12/22/18 12/23/18 06:59 06:59 06:59 Intake Total 1280 340 Output Total 400 200 Balance 880 140 - Physical Examination General/Neuro: alert & oriented x3, NAD Neck: carotid US brisk, no JVD present Heart: other: (irreg irreg) Abdomen: NT/ND, soft - Telemetry Telemetry Rhythm: AFib - Labs Result Diagrams: 12/20/18 16:51 12/22/18 04:22 Troponin/CKMB CK-MB (CK-2) 2.3 ng/mL (0-6.6) 12/11/18 11:50 Troponin I 0.020 ng/mL (< 0.028) 12/11/18 17:57 - Assessment/Plan IMPRESSION: 1. Chronic atrial fibrillation with previously attempted cardioversion, approximately 3 or 4 years ago -adequate rate control - Metoprolol from 25mg TID. 2. Nonsustained ventricular tachycardia. 3. History of preserved left ventricular ejection fraction by echocardiogram 5 months ago at 45% by nuclear stress test. 4. Acute on chronic congestive heart failure with exacerbation. 5. Moderate to severe mitral regurgitation. -per cardiology -if surgical intervention is required we would also recommend he undergo Maze and left atrial appendage closure procedure simultaneously 6. Moderate to severe left atrial dilation. 7. Elevated CHADS-VASc score of 3 - on the basis of hypertension, heart failure, and advancing age. - Anticoagulation is indicated. - History of gastrointestinal bleed on Xarelto and Eliquis 8. CAD -severe LM lesion 80%, RCA 50-55%. CV surgery consult with Dr Doyle pending. 9. Pleural effusion -s/p thoracentesis on 12/21 removing ~1300mL. Continue AC (warfarin vs temp lovenox) and rate control for AF. L/RHC this AM with Dr Shaikh. Spoke with Dr Doyle about possible MAZE and ESTEPHANIE closure if he pt goes for CABG here.
[2018-12-22] MEDS: Calcium Carbonate 500 MG ChewTAB PO PRN (10:52)
--- NOTE | 2018-12-22 13:12 | PRG ---
DATE OF SERVICE: 12/22/2018 SERVICE: Pulmonary Medicine. INTERVAL HISTORY: The patient is doing fine from respiratory standpoint. Breathing comfortably. After the thoracentesis yesterday, he did not have any issues with lying flat. He got to have cardiac catheterization this morning without any difficulties. He denies any fevers or cough or sputum production overnight. Interestingly, his back and side discomfort resolved following the thoracentesis as well. PHYSICAL EXAMINATION: VITAL SIGNS: Afebrile. Pulse 84, blood pressure 116/77, respirations 18, and saturation 99% on 3 L nasal cannula. GENERAL: The patient is awake and alert, in no apparent distress. LUNGS: Decent air entry. No prolonged expiratory phase or wheezing is appreciated. Minimal crackles are present dependently. HEART: Normal rate, regular. ABDOMEN: Soft, nontender, and nondistended. Bowel sounds are positive. MUSCULOSKELETAL: No cyanosis or clubbing. There is no pitting in the bilateral lower extremities. NEUROLOGIC: Grossly nonfocal. LABORATORY DATA: Creatinine 1.90, BUN 33. Basic metabolic profile is otherwise unremarkable. His glucose falls within normal limits. PH is also normal. Body fluid culture is currently pending. Pathology currently pending. ASSESSMENT: 1. Acute hypoxic respiratory failure, improving. 2. Acute on chronic diastolic and valvular heart failure. 3. Moderate to severe mitral regurgitation. 4. Pleural effusion on the left, status post thoracentesis demonstrating a very clear transudate. 5. Atrial fibrillation. DISCUSSION AND PLAN: We are awaiting cytology. It is my understanding the patient went for catheterization this morning, and has operable disease. As such, I will continue to follow along intermittently in the case we are going for an operation during this hospital stay. We will continue to follow up the results of the cytology, but given that it is transudative, it is very unlikely to represent a malignant effusion. Please call with additional questions or concerns through time. Job ID: [id number] [facility]
[2018-12-22] MEDS: Lidocaine 5% Patch TD SCH (14:04)
--- NOTE | 2018-12-22 14:10 | PDOC.PN ---
- Subjective Encounter Start Date: 12/22/18 Encounter Start Time: 14:08 Subjective: pt has had dramatic improvement after thoracentesis yesterday.able to lie -: flat now which he could not for last several days -: 1300 ml pleural fluid removed from Left side. Back pain also resolved - Objective MAR Reviewed: Yes Vital Signs & Weight: Vital Signs (12 hours) Temp Pulse Resp BP BP Pulse Ox 12/22/18 11:30 97.5 F L 84 18 116/77 99 12/22/18 09:20 97 18 130/78 12/22/18 07:29 99.4 F 84 16 101/66 98 12/22/18 03:48 97.3 F L 85 20 125/69 93 L Weight Admit Weight 251 lb 8 oz Weight 243 lb 4 oz I&O: 12/21/18 12/22/18 12/23/18 06:59 06:59 06:59 Intake Total 1280 340 Output Total 400 200 Balance 880 140 Result Diagrams: 12/20/18 16:51 12/22/18 04:22 Additional Labs: Microbiology 12/21/18 17:20 Pleural fluid Body Fluid Culture - Preliminary Laboratory Tests 12/18/18 12/19/18 12/20/18 16:03 04:30 06:15 Creatinine 1.84 H 2.04 H 2.08 H Fluid WBC Fluid Seg Neutrophil % Fluid Lymphocytes % Pleural Total Protein Pleural LDH Pleural Glucose 12/20/18 12/21/18 12/21/18 16:51 03:44 17:20 Creatinine 2.17 H 2.28 H Fluid WBC Fluid Seg Neutrophil % Fluid Lymphocytes % Pleural Total Protein 1.6 Pleural LDH 62 Pleural Glucose 114 12/21/18 12/22/18 17:20 04:22 Creatinine 1.90 H Fluid WBC 477 Fluid Seg Neutrophil % 39 Fluid Lymphocytes % 30 Pleural Total Protein Pleural LDH Pleural Glucose Radiology Reviewed by me: Yes (LHC_severe main disease 80%,RCA 50%) Phys Exam - Physical Examination Constitutional: NAD lying flat in bed post cath. HEENT: PERRLA, moist MMs, sclera anicteric, oral pharynx no lesions Neck: no nodes, no JVD, supple, full ROM Respiratory: no wheezing, no rales, no rhonchi, clear to auscultation bilateral Cardiovascular: RRR loud systolic murmur best heard at apex Gastrointestinal: soft, non-tender, no distention, positive bowel sounds Musculoskeletal: pulses present, edema present (+3 b/l .better than yesterday) Neurological: non-focal, normal sensation, moves all 4 limbs Psychiatric: normal affect, A&O x 3 Skin: no rash Dx/Plan (1) Acute on chronic diastolic ACC/AHA stage C congestive heart failure Code(s): I50.33 - ACUTE ON CHRONIC DIASTOLIC (CONGESTIVE) HEART FAILURE Status : Acute Comment: lasix on hold due to ANI.better compensated for now s/p thoracentesis (2) ANI (acute kidney injury) Code(s): N17.9 - ACUTE KIDNEY FAILURE, UNSPECIFIED Status: Acute Comment: improving. monitor. (3) Pleural effusion, left Code(s): J90 - PLEURAL EFFUSION, NOT ELSEWHERE CLASSIFIED Status: Acute Comment: s/p thoracentesis 12/21/18 (4) Atrial fibrillation, chronic Code(s): I48.2 - CHRONIC ATRIAL FIBRILLATION Status: Chronic Comment: with rvr off and on.Couamdin on hold due to CABG in house. Cath done today. 1.MAZE w ESTEPHANIE ligation with CABG if possible per EP.cont BB,digoxin (5) CKD (chronic kidney disease) stage 3, GFR 30-59 ml/min Code(s): N18.3 - CHRONIC KIDNEY DISEASE, STAGE 3 (MODERATE) Status: Chronic Comment: Monitor. (6) Chronic anticoagulation Code(s): Z79.01 - RESEARCH BIOLOGIST (CURRENT) USE OF ANTICOAGULANTS Status: Chronic Comment: coumadin on hold for cardiac procedures (7) Dyslipidemia Code(s): E78.5 - HYPERLIPIDEMIA, UNSPECIFIED Status: Chronic (8) Hypertension Code(s): I10 - ESSENTIAL (PRIMARY) HYPERTENSION Status: Chronic Qualifiers: (9) Mitral valve regurgitation Status: Chronic Qualifiers: Cardiac valve disease etiology: nonrheumatic Qualified Code(s): I34.0 - Nonrheumatic mitral (valve) insufficiency Comment: Severe (10) CAD (coronary artery disease) Code(s): I25.10 - ATHSCL HEART DISEASE OF [place] CORONARY ARTERY W/O ANG PCTRS Status: Chronic Comment: Per cath today - Plan plan discussed w/ family, PT/OT, incentive spirometry, out of bed/ambulate, DVT proph w/SCDs CTS eval for possible CABG.severe Main and RCA lesions.cont ASA,statin,BB -: HD stable -: follow pleural fluid results. largely transudative. follow pathology. -: Appreciate Cardiology,PCCM,EP and CTS input -: am labs * . Review of Systems - Review of Systems Constitutional: weakness, malaise. negative: fever, chills, sweats, other ENT: negative: Ear Pain, Ear Discharge, Nose Pain, Nose Discharge, Nose Congestion, Mouth Pain, Mouth Swelling, Throat Pain, Throat Swelling, Other Respiratory: negative: Cough, Dry, Shortness of Breath, Hemoptysis, SOB with Excertion, Pleuritic Pain, Sputum, Wheezing Cardiovascular: negative: chest pain, palpitations, orthopnea, paroxysmal nocturnal dyspnea, edema, light headedness, other Gastrointestinal: negative: Nausea, Vomiting, Abdominal Pain, Diarrhea, Constipation, Melena, Hematochezia, Other Genitourinary: negative: Dysuria, Frequency, Incontinence, Hematuria, Retention , Other Musculoskeletal: negative: Neck Pain, Shoulder Pain, Arm Pain, Back Pain, Hand Pain, Leg Pain, Foot Pain, Other Skin: negative: Rash, Lesions, Filipe, Bruising, Other Neurological: negative: Weakness, Numbness, Incoordination, Change in Speech, Confusion, Seizures, Other - Medications/Allergies Allergies/Adverse Reactions: Allergies Allergy/AdvReac Type Severity Reaction Status Date / Time No Known Drug Allergies Allergy Verified 07/29/18 00:58 Medications: Current Medications Acetaminophen (Tylenol) 650 mg PO Q4H PRN PRN Reason: Headache/Fever/Mild Pain (1-3) Last Admin: 12/22/18 02:36 Dose: 650 mg Acetaminophen/Codeine Phosphate (Tylenol #3) 1 tab PO Q4H PRN PRN Reason: Mild Pain (1-3) Acetaminophen/Codeine Phosphate (Tylenol #3) 2 tab PO Q4H PRN PRN Reason: Moderate Pain (4-6) Artificial Tears (Tears Naturale) 2 drop EA EYE PRN PRN PRN Reason: Dry Eyes Aspirin (Ecotrin) 81 mg PO 1200 DONTRE[facility] Atorvastatin Calcium (Lipitor) 40 mg PO DAILY DONTRELL Last Admin: 12/22/18 06:34 Dose: 40 mg Bisacodyl (Dulcolax) 10 mg PO DAILYPRN PRN PRN Reason: Constipation Last Admin: 12/17/18 21:13 Dose: 10 mg Bisacodyl (Dulcolax) 10 mg [place] DAILYPRN PRN PRN Reason: Constipation Calcitriol (Rocaltrol) 0.25 mcg PO Q2D@0900 [facility] Last Admin: 12/21/18 05:41 Dose: 0.25 mcg Calcium Carbonate (Tums) 1,000 mg PO Q4H PRN PRN Reason: Heartburn or Indigestion Last Admin: 12/22/18 10:52 Dose: 1,000 mg Guaifenesin (Robitussin Sf) 200 mg PO Q4H PRN PRN Reason: Cough Sodium Chloride (Normal Saline 0.9%) 200 mls @ 0 mls/hr IV ONE PRN PRN Reason: SBP < 90 Stop: 12/22/18 23:00 Sodium Chloride (Normal Saline 0.9%) 1,000 mls @ 50 mls/hr IV .Q20H [facility] Last Admin: 12/22/18 09:31 Dose: 1,000 mls Lidocaine (Lidoderm 5% Patch) 1 patch TD 1300 [facility] Last Admin: 12/22/18 14:04 Dose: 1 patch Loperamide HCl (Imodium) 2 mg PO PRN PRN PRN Reason: Diarrhea/Loose Stools Loratadine (Claritin) 10 mg PO DAILYPRN PRN PRN Reason: Sinus Symptoms Metoprolol Tartrate (Lopressor) 25 mg PO TID [facility] Last Admin: 12/22/18 14:04 Dose: 25 mg Mineral Oil/White Petrolatum (Eucerin Cream) 0 gm TOP BIDPRN PRN PRN Reason: Dry Skin Miscellaneous Information (Communication Order-Pharmacy) 0 each FS .CATH ON [facility] Miscellaneous Medication (Lidocaine Patch Removal) 1 each TOP 0100 [facility] Last Admin: 12/22/18 02:33 Dose: 1 each Nitroglycerin (Nitrostat) 0.4 mg SL Q5MIN PRN PRN Reason: Chest Pain Ondansetron HCl (Zofran Odt) 4 mg PO Q6H PRN PRN Reason: Nausea/Vomiting Last Admin: 12/20/18 11:52 Dose: 4 mg Ondansetron HCl (Zofran) 4 mg IVP Q6H PRN PRN Reason: Nausea/Vomiting Sodium Chloride ([place] Nasal [place] 0.65%) 0 ml EA NARE QIDPRN PRN PRN Reason: Nasal Congestion Sodium Chloride (Flush - Normal Saline) 10 ml IVF Q12HR [facility]ONTRE[facility] Last Admin: 12/22/18 09:31 Dose: 10 ml Sodium Chloride (Flush - Normal Saline) 10 ml IVF PRN PRN PRN Reason: Saline Flush Throat Lozenges (Cepastat Lozenges) 1 vonda PO Q2H PRN PRN Reason: Sore Throat Zolpidem Tartrate (Ambien) 5 mg PO HSPRN PRN PRN Reason: Insomnia
[2018-12-22] MEDS ORDERED: Iopamidol 370 76% 100 ML VIAL ONE (14:18)
[2018-12-22 15:48] LABS: Hemoglobin 14.2 g/dL (14.0-18.0); Platelet Count 231 thou/uL (130-400)
[2018-12-22] MEDS ORDERED: Furosemide 40 MG/4 ML VIAL SLOW IVP SCH (18:45)
[2018-12-22] MEDS ORDERED: Aspirin 81 mg Enteric Coated Tablet PO SCH (18:45)
[2018-12-22] MEDS ORDERED: Digoxin 0.5 MG/2 ML AMP SLOW IVP SCH (18:45)
[2018-12-23] MEDS: Lidocaine Patch Removal 1 EACH TOP SCH (00:20)
[2018-12-23 05:55] LABS: Anion Gap 13 mmol/L (10-20); BUN (Urea Nitrogen) 29 mg/dL (8.4-25.7); Calc. Creatinine Clearance 67 mL/min (70-130); Calcium 8.8 mg/dL (7.8-10.44); Carbon Dioxide 25 mmol/L (23-31); Chloride 106 mmol/L (98-107); Estimated GFR-MDRD 42; Glucose 95 mg/dL (80-115); Potassium 3.5 mmol/L (3.5-5.1); Sodium 140 mmol/L (136-145)
[2018-12-23] MEDS ORDERED: Potassium Chloride 20 MEQ TAB PO SCH (07:45)
[2018-12-23] MEDS ORDERED: Lidocaine 5% Patch TD PRN (08:31)
[2018-12-23] MEDS: Atorvastatin Calcium 40 MG TAB PO SCH (08:54)
[2018-12-23] MEDS: Calcitriol 0.25 MCG CAP PO SCH (08:54)
[2018-12-23] MEDS: Metoprolol Tartrate 25 MG TAB PO SCH ×2 (08:54→16:59)
[2018-12-23] MEDS ORDERED: Furosemide 20 MG/2 ML VIAL SLOW IVP SCH (09:00)
--- NOTE | 2018-12-23 09:42 | PRG ---
DATE OF SERVICE: 12/23/2018 SUBJECTIVE: Mr. You is feeling better today. He did become short of breath yesterday evening. He did receive some fluid yesterday, but his shortness of breath improved with a dose of IV Lasix. He feels better today. OBJECTIVE: VITAL SIGNS: Blood pressure 107/79, pulse is 80, it is irregular. LUNGS: Clear. CARDIAC: Irregularly irregular. There is apical systolic murmur of mitral regurgitation. ABDOMEN: Soft, nontender. EXTREMITIES: [id number] edema. PERTINENT LABORATORY DATA: Creatinine is improved to 1.62, potassium is 3.5. ASSESSMENT: Summary of the cardiac catheterization yesterday; 1. Left main, approximately 80% with calcium. 2. Circumflex small distribution vessel. No obstructive stenosis. 3. Right coronary 50% to 55% lesions. 4. Results of the pressure tracings. Left ventricular pressure was 84/14, aortic pressure 86/68 with a systolic pressures being virtually and indistinguishable on a dual lumen pigtail. 5. Pulmonary capillary wedge pressure was 39 with "V" wave was up to 66. 6. PA pressure 66/37, right atrial pressure of 11. 7. Cardiac output was low at 2.7. RV pressure 66/10. In summary, the patient is following; 1. Left main coronary stenosis. 2. Mitral regurgitation, which appears severe, very large V-waves and eccentric jet on echocardiogram. 3. Ejection fraction on echo was 50% to 55%. 4. Chronic atrial fibrillation with a very large left atrium. 5. Pulmonary hypertension related to diastolic heart failure and mitral regurgitation. 6. No significant aortic stenosis. PLAN: 1. I discussed with the surgeon here, he recommended consideration for transfer to [place] for possible mitral valve repair. 2. Bypass surgery to be done as well. 3. Left atrial appendage over-sewing. 4. The patient's creatinine fortunately has improved. It had gone all the way up to 2.28, it is back down to 1.62 which is essentially his baseline. The patient was taken off angiotensin receptor blockers, which I think was playing a role in his renal insufficiency and combined with the diuretics. The patient will be placed back on anticoagulation. He had been on Coumadin and Lovenox prior to the cardiac catheterization. Job ID: [id number]
[2018-12-23] MEDS ORDERED: Aspirin 81 mg Enteric Coated Tablet PO SCH (12:00)
--- NOTE | 2018-12-23 12:13 | PDOC.PN ---
- Subjective Encounter Start Date: 12/23/18 Encounter Start Time: 12:12 Subjective: feels well .no chest pain. minimal SOB w exertion -: improved orthopnea - Objective MAR Reviewed: Yes Vital Signs & Weight: Vital Signs (12 hours) Temp Pulse Resp BP Pulse Ox 12/23/18 08:05 95 12/23/18 08:03 97.9 F 94 20 141/90 H 96 12/23/18 04:00 97.5 F L 125 H 18 107/79 99 12/23/18 01:38 99 Weight Admit Weight 251 lb 8 oz Weight 244 lb 5 oz I&O: 12/22/18 12/23/18 12/24/18 06:59 06:59 06:59 Intake Total 340 1550 Output Total 200 475 Balance 140 1075 Result Diagrams: 12/22/18 15:30 12/23/18 04:57 Additional Labs: Microbiology 12/21/18 17:20 Pleural fluid Acid Fast Bacilli Smear - Final 12/21/18 17:20 Pleural fluid Body Fluid Culture - Preliminary Laboratory Tests 12/20/18 12/21/18 12/22/18 16:51 03:44 04:22 Creatinine 2.17 H 2.28 H 1.90 H 12/23/18 04:57 Creatinine 1.62 H Phys Exam - Physical Examination Constitutional: NAD HEENT: PERRLA, moist MMs, sclera anicteric, oral pharynx no lesions Neck: no nodes, no JVD, supple, full ROM Respiratory: no wheezing, no rales, no rhonchi, clear to auscultation bilateral Cardiovascular: no significant murmur, no rub, irregular Gastrointestinal: soft, non-tender, no distention, positive bowel sounds Musculoskeletal: pulses present, edema present (+2.improving slowly) Neurological: non-focal, normal sensation, moves all 4 limbs Psychiatric: normal affect, A&O x 3 Skin: no rash, normal turgor, cap refill <2 seconds Dx/Plan (1) Acute on chronic diastolic ACC/AHA stage C congestive heart failure Code(s): I50.33 - ACUTE ON CHRONIC DIASTOLIC (CONGESTIVE) HEART FAILURE Status : Acute Comment: lasix on hold due to ANI.better compensated for now s/p thoracentesis (2) ANI (acute kidney injury) Code(s): N17.9 - ACUTE KIDNEY FAILURE, UNSPECIFIED Status: Acute Comment: improving. monitor. (3) Pleural effusion, left Code(s): J90 - PLEURAL EFFUSION, NOT ELSEWHERE CLASSIFIED Status: Acute Comment: s/p thoracentesis 12/21/18 (4) Atrial fibrillation, chronic Code(s): I48.2 - CHRONIC ATRIAL FIBRILLATION Status: Chronic Comment: with rvr off and on.Couamdin on hold due to CABG in house. Cath done. 1.MAZE w ESTEPHANIE ligation with CABG if possible per EP.cont BB,digoxin (5) CKD (chronic kidney disease) stage 3, GFR 30-59 ml/min Code(s): N18.3 - CHRONIC KIDNEY DISEASE, STAGE 3 (MODERATE) Status: Chronic Comment: Monitor. (6) Chronic anticoagulation Code(s): Z79.01 - USP (CURRENT) USE OF ANTICOAGULANTS Status: Chronic Comment: coumadin on hold for cardiac procedures (7) Dyslipidemia Code(s): E78.5 - HYPERLIPIDEMIA, UNSPECIFIED Status: Chronic (8) Hypertension Code(s): I10 - ESSENTIAL (PRIMARY) HYPERTENSION Status: Chronic Qualifiers: (9) Mitral valve regurgitation Status: Chronic Qualifiers: Cardiac valve disease etiology: nonrheumatic Qualified Code(s): I34.0 - Nonrheumatic mitral (valve) insufficiency Comment: Severe (10) CAD (coronary artery disease) Code(s): I25.10 - ATHSCL HEART DISEASE OF [place] CORONARY ARTERY W/O ANG PCTRS Status: Chronic Comment: Per cath .Will need CABG - Plan plan discussed w/ family, out of bed/ambulate, DVT proph w/SCDs Renal Fx improved.needs CABG -: discussed w .plans to transfer to [facility] in [place] for MVR -: and CABG with or without MAZE/ESTEPHANIE ligation -: care discussed w DR. Ulloa in [place] who accpeted the pt w -: as a director transition * .Pt will be Dced when bed avilable * restarted on anticoagulation given A-fib * HD stable Review of Systems - Review of Systems ENT: negative: Ear Pain, Ear Discharge, Nose Pain, Nose Discharge, Nose Congestion, Mouth Pain, Mouth Swelling, Throat Pain, Throat Swelling, Other Respiratory: SOB with Excertion. negative: Cough, Dry, Shortness of Breath, Hemoptysis, Pleuritic Pain, Sputum, Wheezing Cardiovascular: edema. negative: chest pain, palpitations, orthopnea, paroxysmal nocturnal dyspnea, light headedness, other Gastrointestinal: negative: Nausea, Vomiting, Abdominal Pain, Diarrhea, Constipation, Melena, Hematochezia, Other Genitourinary: negative: Dysuria, Frequency, Incontinence, Hematuria, Retention , Other Musculoskeletal: negative: Neck Pain, Shoulder Pain, Arm Pain, Back Pain, Hand Pain, Leg Pain, Foot Pain, Other Skin: negative: Rash, Lesions, Filipe, Bruising, Other Neurological: negative: Weakness, Numbness, Incoordination, Change in Speech, Confusion, Seizures, Other - Medications/Allergies Allergies/Adverse Reactions: Allergies Allergy/AdvReac Type Severity Reaction Status Date / Time No Known Drug Allergies Allergy Verified 07/29/18 00:58 Medications: Current Medications Acetaminophen (Tylenol) 650 mg PO Q4H PRN PRN Reason: Headache/Fever/Mild Pain (1-3) Last Admin: 12/22/18 02:36 Dose: 650 mg Acetaminophen/Codeine Phosphate (Tylenol #3) 1 tab PO Q4H PRN PRN Reason: Mild Pain (1-3) Acetaminophen/Codeine Phosphate (Tylenol #3) 2 tab PO Q4H PRN PRN Reason: Moderate Pain (4-6) Artificial Tears (Tears Naturale) 2 drop EA EYE PRN PRN PRN Reason: Dry Eyes Aspirin (Ecotrin) 81 mg PO 1200 DONTRELL Atorvastatin Calcium (Lipitor) 40 mg PO DAILY [facility] Last Admin: 12/23/18 08:54 Dose: 40 mg Bisacodyl (Dulcolax) 10 mg PO DAILYPRN PRN PRN Reason: Constipation Last Admin: 12/17/18 21:13 Dose: 10 mg Bisacodyl (Dulcolax) 10 mg [place] DAILYPRN PRN PRN Reason: Constipation Calcitriol (Rocaltrol) 0.25 mcg PO Q2D@0900 [facility] Last Admin: 12/23/18 08:54 Dose: 0.25 mcg Calcium Carbonate (Tums) 1,000 mg PO Q4H PRN PRN Reason: Heartburn or Indigestion Last Admin: 12/22/18 10:52 Dose: 1,000 mg Enoxaparin Sodium (Lovenox) 80 mg SC 0900,2100 [facility] Furosemide (Lasix) 20 mg SLOW IVP DAILY [facility] Last Admin: 12/23/18 08:54 Dose: 20 mg Guaifenesin (Robitussin Sf) 200 mg PO Q4H PRN PRN Reason: Cough Lidocaine (Lidoderm 5% Patch) 1 patch TD 1300 PRN PRN Reason: Pain Loperamide HCl (Imodium) 2 mg PO PRN PRN PRN Reason: Diarrhea/Loose Stools Loratadine (Claritin) 10 mg PO DAILYPRN PRN PRN Reason: Sinus Symptoms Metoprolol Tartrate (Lopressor) 25 mg PO TID [facility] Last Admin: 12/23/18 08:54 Dose: 25 mg Mineral Oil/White Petrolatum (Eucerin Cream) 0 gm TOP BIDPRN PRN PRN Reason: Dry Skin Miscellaneous Information (Communication Order-Pharmacy) 0 each FS .CATH ON [facility] Miscellaneous Medication (Lidocaine Patch Removal) 1 each TOP 0100 [facility] Last Admin: 12/23/18 00:20 Dose: 1 each Nitroglycerin (Nitrostat) 0.4 mg SL Q5MIN PRN PRN Reason: Chest Pain Ondansetron HCl (Zofran Odt) 4 mg PO Q6H PRN PRN Reason: Nausea/Vomiting Last Admin: 12/20/18 11:52 Dose: 4 mg Ondansetron HCl (Zofran) 4 mg IVP Q6H PRN PRN Reason: Nausea/Vomiting Potassium Chloride (K-Dur) 20 meq PO QAM-[facility] Sodium Chloride ([place] Nasal [place] 0.65%) 0 ml EA NARE QIDPRN PRN PRN Reason: Nasal Congestion Sodium Chloride (Flush - Normal Saline) 10 ml IVF Q12HR [facility] Last Admin: 12/23/18 08:55 Dose: 10 ml Sodium Chloride (Flush - Normal Saline) 10 ml IVF PRN PRN PRN Reason: Saline Flush Throat Lozenges (Cepastat Lozenges) 1 vonda PO Q2H PRN PRN Reason: Sore Throat Zolpidem Tartrate (Ambien) 5 mg PO HSPRN PRN PRN Reason: Insomnia
[2018-12-23] MEDS: Calcium Carbonate 500 MG ChewTAB PO PRN (12:39)
[2018-12-23 12:42] VITALS: TEMP 97.8
--- NOTE | 2018-12-23 13:04 | PDOC.CTH ---
Cardiology Progress Note - Subjective EP PROGRESS NOTE: 12/23/18 Pt orthopnea has improved after thoracentesis on 12/21. Continues to have swelling in BLE. Asymptomatic with AF. No bleeding issues. Awaiting CVS consult. - Objective Vital Signs Temp Pulse Resp BP BP Pulse Ox 12/23/18 12:41 97.8 F 102 H 18 125/78 93 L 12/23/18 08:05 95 12/23/18 08:03 97.9 F 94 20 141/90 H 96 12/23/18 04:00 97.5 F L 125 H 18 107/79 99 12/23/18 01:38 99 Admit Weight 251 lb 8 oz Weight 244 lb 5 oz 12/22/18 12/23/18 12/24/18 06:59 06:59 06:59 Intake Total 340 1550 Output Total 200 475 Balance 140 1075 - Physical Examination General/Neuro: alert & oriented x3, NAD Neck: carotid US brisk, no JVD present Lungs: CTA, unlabored respirations Heart: PMI normal, other: (irreg irreg) Abdomen: NT/ND, soft Extremities: + edema B (3+ BLE) - Telemetry Telemetry Rhythm: AF - Labs Result Diagrams: 12/22/18 15:30 12/23/18 04:57 Troponin/CKMB CK-MB (CK-2) 2.3 ng/mL (0-6.6) 12/11/18 11:50 Troponin I 0.020 ng/mL (< 0.028) 12/11/18 17:57 - Assessment/Plan IMPRESSION: 1. Chronic atrial fibrillation with previously attempted cardioversion, approximately 3 or 4 years ago - good rate control - Metoprolol from 25mg TID. 2. Nonsustained ventricular tachycardia. 3. History of preserved left ventricular ejection fraction by echocardiogram 5 months ago at 45% by nuclear stress test. 4. Acute on chronic congestive heart failure with exacerbation. 5. Moderate to severe mitral regurgitation. -per cardiology -if surgical intervention is required we would also recommend he undergo Maze and left atrial appendage closure procedure simultaneously 6. Moderate to severe left atrial dilation. 7. Elevated CHADS-VASc score of 3 - on the basis of hypertension, heart failure, and advancing age. - Anticoagulation is indicated. - History of gastrointestinal bleed on Xarelto and Eliquis 8. CAD -severe LM lesion 80%, RCA 50-55%. CV surgery consult with Dr Doyle pending. 9. Pleural effusion -s/p thoracentesis on 12/21 removing ~1300mL. Continue AC (warfarin vs temp lovenox) and rate control for AF. L/RHC 12/[address] Shaikh[address] Spoke with Dr Doyle on 12/22 about possible MAZE and ESTEPHANIE closure if taken for CABG here.
[2018-12-23 19:59] VITALS: BP 98/78
[2018-12-24] MEDS ORDERED: Potassium Chloride 20 MEQ TAB PO SCH (08:00)
[2018-12-24] MEDS ORDERED: Enoxaparin Sodium 80 MG/0.8 ML SYRINGE SC SCH (09:00)
--- NOTE | 2018-12-24 12:10 | DIS ---
DATE OF ADMISSION: 12/13/2018 DATE OF DISCHARGE: 12/23/2018 CONDITION AT THE TIME OF DISCHARGE: Stable and improved. DISCHARGE DISPOSITION: [facility] in [place]. DISCHARGE DIAGNOSES: 1. Acute on chronic diastolic congestive heart failure, ACC stage C. 2. Acute kidney injury on chronic kidney disease. 3. Left-sided pleural effusion, status post thoracentesis of 1300 mL of pleural fluid. 4. Chronic atrial fibrillation. 5. Coronary artery disease, diagnosed during this hospitalization. 6. Chronic anticoagulation with Coumadin and chronic atrial fibrillation, hypertension, and severe mitral valve regurgitation. DISCHARGE MEDICATIONS: 1. Lovenox 80 mg subcu b.i.d. 2. Digoxin 0.125 mg daily. 3. Calcitriol 25 mg every 2 days. 4. Atorvastatin 40 mg daily. 5. Potassium chloride 20 mEq daily. 6. Diltiazem 240 mg daily. 7. Warfarin has to be held. 8. Zofran p.r.n. 9. Nitrostat p.r.n. 10. Metoprolol tartrate 25 mg p.o. b.i.d. 11. Lasix 20 mg daily. 12. Aspirin 81 mg daily. IN-HOUSE CONSULTATION: 1. Cardiology, Dr. Shaikh. 2. Electrophysiology, Dr. Shelton. 3. Pulmonary Medicine, Dr. Muniz. PROCEDURES DONE IN THE HOSPITAL: 1. Cardiac catheterization by Dr. Shaikh on 12/22/2018, which shows severe left main stenosis 80%, and RCA 50% to 55% with severe mitral regurgitation. 2. Transthoracic echocardiogram on 12/14/2018, which shows EF of 50% to 55% with atrial fibrillation with ventricular response, [id number] mitral regurgitation, moderately elevated pulmonary arterial pressure of 56 mmHg. 3. Chest x-ray on 12/21/2018, which showed a large left-sided pleural effusion. 4. Thoracentesis by Dr. Muniz on 12/21/2018, with removal of 1300 mL of pleural fluid from the left chest cavity. HISTORY OF PRESENTING ILLNESS: Mr. You is a pleasant 68-year-old male with past medical history of chronic atrial fibrillation, chronic congestive heart failure, and hypertension, who presented to the emergency room with complaints of worsening lower extremity swelling, difficulty breathing while lying down, and exertional dyspnea. His legs were so swollen that the fluid was seeping from his legs. In the emergency room upon presentation, he was hemodynamically stable with a blood pressure of 115/68, saturating 95% on room air. His EKG showed AFib with controlled ventricular response without any acute changes, but the chest x-ray showed pulmonary vascular congestion. He had indeterminate troponin, elevated BNP of 743. He was admitted with a presumptive diagnosis of chronic congestive heart failure with acute exacerbation and was started on diuretics. Cardiology was consulted. Please see admission history and physical dictated by Dr. Estrada on 12/11/2018. HOSPITAL COURSE: The patient was seen by Cardiology, Dr. Shaikh, who agreed with diuresis. He recommended that because of his atrial fibrillation, he undergo evaluation from senior animal trainer as well. Dr. Shelton was consulted for same. He also recommended cardiac catheterization and transthoracic echocardiogram. Echo showed severe mitral regurgitation, which was confirmed by cardiac catheterization. Cardiac cath also showed severe left main disease and moderate RCA disease. For this, cardiovascular Surgery, Dr. Doyle was consulted; but after consultation, it was found out that the patient would benefit not only from CABG, but also mitral valve surgery. Electrophysiology, Dr. Shelton, also followed the patient along and his rate was controlled with beta arcelia, digoxin in the hospital. He did not receive Cardizem or Losartan in the hospital because his blood pressure has been running on the lower side. Dr. Shelton also recommended that he undergo either maze procedure or left atrial appendage ligation at the same time as CABG for his chronic atrial fibrillation. Because of the requirements of the complicated surgery, it was decided that it would be best done at a more specialized center and the patient was transferred to [facility] in [place] for the same. I have discussed the case with the accepting hospitalist, Dr. Ulloa in [facility]. He has accepted the patient. The patient exhibited significant orthopnea while in the hospital with inability to even sit back in the chair. A chest x-ray was done towards the end of his hospitalization and he was found to have [id number] left-sided pleural effusion. Pulmonary Medicine was consulted. Thoracentesis was done with removal of 1300 mL of fluid. Pleural fluid pathology was negative for malignancy and cultures were negative. It was largely a transudate. After thoracentesis, the patient had significant improvement in his orthopnea symptoms and was able to lie flat, not only for catheterization, but even afterwards. His leg swelling is going down and his chest examination is clear without any evidence of acute CHF anymore. He was seen and examined prior to discharge. Please see hospitalist progress note from the date of discharge for full details including [id number] interaction. Discharge plan was discussed with Cardiology, Dr. Shaikh, who agrees. . Job ID: [id number]
== END 2018-12-23 20:18 | disposition short-term general hospital (02) | DRG 286 ==
LOC: SCSER 10:40 → ERHOLD 13:22 → 2SW 14:36 → OBSVTOIN 12-13 11:08 → 2NO 12-14 07:48
PROVIDERS: ADMIT Internal Medicine; ATTEND Internal Medicine
PROC: 4A023N8 Measurement of Cardiac Sampling and Pressure, Bilateral, Percutaneous Approach (ICD-10-PCS; principal; 2018-12-13)
PROC: B2111ZZ Fluoroscopy of Multiple Coronary Arteries using Low Osmolar Contrast (ICD-10-PCS; 2018-12-13)
PROC: B2161ZZ Fluoroscopy of Right and Left Heart using Low Osmolar Contrast (ICD-10-PCS; 2018-12-13)
PROC: 0W9B3ZZ Drainage of Left Pleural Cavity, Percutaneous Approach (ICD-10-PCS; 2018-12-21)
DX: I13.0 Hypertensive heart and chronic kidney disease with heart failure and stage 1 through stage 4 chronic kidney disease, or unspecified chronic kidney disease (principal); I50.33 Acute on chronic diastolic (congestive) heart failure; J90 Pleural effusion, not elsewhere classified; N17.9 Acute kidney failure, unspecified; I47.2 Ventricular tachycardia; N18.4 Chronic kidney disease, stage 4 (severe); I48.2 Chronic atrial fibrillation; E87.6 Hypokalemia; E78.5 Hyperlipidemia, unspecified; I34.0 Nonrheumatic mitral (valve) insufficiency; R06.01 Orthopnea; I35.0 Nonrheumatic aortic (valve) stenosis; Z79.01 Long term (current) use of anticoagulants; Z98.890 Other specified postprocedural states; Z79.899 Other long term (current) drug therapy
CPT/HCPCS: 36415; 71045; 71046; 76942; 80048; 80053; 80162; 82553; 82945; 83615; 83690; 83880; 83986; 84157; 84484; 85014; 85018; 85025; 85049; 85060; 85610; 85730; 87070; 87102; 87116; 87205; 87206; 88112; 89051; 93005; 93306; 93460; 93567; 93798; 94760; 96374; C1769; J1160; J1644; J1650; J1940; J3430; Q0162; Q9967